=== PATIENT | female | born 1960 | race Caucasian/White ===

== ENCOUNTER 2017-06-21 16:12 | Inpatient (IN) | payer OTHER, MEDICAID ==
[~2017-06-21] VITALS: Ht 167.6 cm; Wt 75.0 kg
[~2017-06-21 16:12] MED LIST: AMPH1TAB83 PO; CYCL1TAB29 PO; CYMB60CA PO; DIAZ10 PO; DULO1CAP3 PO; FLON0.053; GABA300C5 PO; LAMO100 PO; MSIR15 PO; ORPH100T99 PO; PREG75 PO; XANA1TAB2 PO
[2017-06-21 16:28] VITALS: BP 113/66; PULSE 117; RESP 20; TEMP 100; O2SAT 100
--- NOTE | 2017-06-21 16:45 | PD ---
HPI Chief Complaint: Psychiatric Symptoms Time Seen by Provider: 16:28 Travel History International Travel<30 days: No Contact w/Intl Traveler<30days: No Traveled to known affect area: No History of Present Illness HPI 56-year-old female was Richards acted and brought in for evaluation. Patient has history of psychiatric including bipolar disorder, anxiety, depression, schizophrenia. Patient also has history of chronic pain and on pain medication including morphine and Xanax and Valium. Patient denies any recent alcohol or illicit drug abuse. Patient states that she injured her right ankle right foot recently and was seen at [facility]. X-ray was done patient was given a splint. Patient unable tell me how long the injury has been going on. Patient has not seen a orthopedics for follow-up. PFSH Past Medical History Arthritis: Yes (Rheumatoid) Autoimmune Disease: Yes Blood Disorders: No Bipolar Disorder: Yes Anxiety: Yes Depression: Yes Cancer: No (? able) Chemotherapy: No Cerebrovascular Accident: Yes Diminished Hearing: No Endocrine: No Gastrointestinal Disorders: Yes GERD: Yes Glaucoma: No Genitourinary: No Hepatitis: No Hiatal Hernia: Yes Hypertension: Yes Immune Disorder: Yes Implanted Vascular Access Dvce: No Musculoskeletal: Yes Neurologic: Yes Psychiatric: Yes (Hx of treatment for Bipolar Disorder, schizophrenia) Reproductive: Yes Respiratory: Yes (COPD) Immunizations Current: No Migraines: Yes Radiation Therapy: No Renal Failure: No Schizophrenia: Yes Seizures: Yes Sickle Cell Disease: No Sleep Apnea: Yes Thyroid Disease: No ?: Not Menopausal: Yes : 2 Para: 2 Past Surgical History Abdominal Surgery: Yes (hernia) Cardiac Surgery: No Cholecystectomy: Yes Ear Surgery: No Endocrine Surgery: No Eye Surgery: No Genitourinary Surgery: No Gynecologic Surgery: Yes Hysterectomy: Yes (partial) Neurologic Surgery: No Oral Surgery: No Pacemaker: No Thoracic Surgery: No Other Surgery: Yes Social History Alcohol Use: No Tobacco Use: Yes Substance Use: Yes Allergies-Medications (Allergen,Severity, Reaction): Coded Allergies: acetaminophen (Unverified Allergy, Severe, 06/21/17) aspirin (Unverified Allergy, Severe, SWELLING, 06/21/17) butalbital (Unverified Allergy, Severe, SWELLING, 06/21/17) caffeine (Unverified Allergy, Severe, SWELLING, 06/21/17) pseudoephedrine (Unverified Allergy, Severe, HIVES, 06/21/17) triprolidine (Unverified Allergy, Severe, 06/21/17) Reported Meds & Prescriptions Reported Meds & Active Scripts Active Orphenadrine CR (Orphenadrine Citrate) 100 Mg Tab 100 Mg PO Q12HR Reported Flonase (Fluticasone Propionate) 0.05 % Naspr 1 Spr NA DAILY 1 SPRAY EACH NOSTRIL Lamictal (Lamotrigine) 100 Mg Tab 100 Mg PO DAILY Lyrica (Pregabalin) 75 Mg Cap 75 Mg PO DAILY Cymbalta (Duloxetine HCl) 60 Mg Cap 120 Mg PO DAILY Duloxetine DR (Duloxetine HCl) 60 Mg Capdr 60 Mg PO BID Evekeo (Amphetamine Sulfate) 10 Mg Tab 20 Mg PO BID 1st dose on awakening; additional doses at intervals of 4-6 hrs. Avoid late evening. If treating exogenous obesity, take 30-60 min before meals. Flexeril (Cyclobenzaprine HCl) 10 Mg Tab 10 Mg PO BID Morphine IR (Morphine Sulfate) 15 Mg Tab Unknown Dose PO Q4H PRN Xanax (Alprazolam) 1 Mg Tab 1 Mg PO Q6H PRN Valium (Diazepam) 10 Mg Tab 10 Mg PO BID Gabapentin 300 Mg Cap 300 Mg PO TID Review of Systems General / Constitutional: No: Fever Eyes: No: Visual changes HENT: No: Headaches Cardiovascular: No: Chest Pain or Discomfort Respiratory: No: Shortness of Breath Gastrointestinal: No: Abdominal Pain Genitourinary: No: Dysuria Musculoskeletal: No: Pain Skin: No Rash Neurologic: No: Weakness Psychiatric: No: Depression Endocrine: No: Polydipsia Hematologic/Lymphatic: No: Easy Bruising Physical Exam Narrative GENERAL: Well-nourished, well-developed patient. SKIN: Focused skin assessment warm/dry. HEAD: Normocephalic. EYES: No scleral icterus. No injection or drainage. NECK: Supple, trachea midline. No JVD or lymphadenopathy. CARDIOVASCULAR: Regular rate and rhythm without murmurs, gallops, or rubs. RESPIRATORY: Breath sounds equal bilaterally. No accessory muscle use. GASTROINTESTINAL: Abdomen soft, non-tender, nondistended. MUSCULOSKELETAL: No cyanosis, or edema. BACK: Nontender without obvious deformity. No CVA tenderness. Patient has mild diffuse tenderness over the right ankle and right foot. No redness no heat noted. Sensorimotor function distally intact. Data Data Last Documented VS Vital Signs Date Time Temp Pulse Resp B/P (MAP) Pulse Ox O2 Delivery O2 Flow Rate FiO2 06/21/17 16:28 100.0 117 20 113/66 (82) 100 Orders Orders Complete Blood Count With Diff (06/21/17 16:35) Comprehensive Metabolic Panel (06/21/17 16:35) Psych Screen (06/21/17 16:35) Drug Screen, Random Urine (06/21/17 16:35) Alcohol (Ethanol) (06/21/17 16:35) Ankle, Complete ([id number]) (06/21/17 16:35) Foot, Complete ([id number]) (06/21/17 16:35) MDM Medical Decision Making Medical Screen Exam Complete: Yes Emergency Medical Condition: Yes Differential Diagnosis Differential diagnosis including acute exacerbation of bipolar disorder, schizophrenia, psychosis, substance induced mood disorder, right ankle foot sprain versus fracture. Narrative Course 56-year-old female was Richards acted and brought in for evaluation. History of bipolar disorder and schizophrenia. Patient also complained of right ankle right foot pain secondary to recent injury. Nam Garza MD Jun 21, 2017 16:45
--- NOTE | 2017-06-21 16:58 | RADRPT ---
EXAM DATE/TIME: 06/21/2017 16:45 [facility] COMPARISON: ANKLE RIGHT COMPLETE ([id number]), March 21, 2017, 18:33. ANKLE LEFT COMPLETE ([id number]), March 21, 2017, 18:35. INDICATIONS : Right ankle pain. Fall today. MEDICAL HISTORY : Right ankle fracture. SURGICAL HISTORY : None. ENCOUNTER: Initial ACUITY: 1 day PAIN SCORE: 6/10 LOCATION: Right ankle. FINDINGS: The examination demonstrates a partially healed fracture through the lateral malleolus. The ankle mor tise appears intact. No retained foreign body is seen. There is soft tissue swelling laterally around the ankle. CONCLUSION: There is a fracture through the lateral malleolus on the right. This appears to be partially healed. Ramy Silva MD on June 21, 2017 at 16:55 Board Certified Radiologist. This report was verified electronically.
--- NOTE | 2017-06-21 16:59 | RADRPT ---
EXAM DATE/TIME: 06/21/2017 16:47 [facility] COMPARISON: ANKLE RIGHT COMPLETE ([id number]), June 21, 2017, 16:45. INDICATIONS : Right foot pain; fall today. MEDICAL HISTORY : None. SURGICAL HISTORY : None. ENCOUNTER: Initial ACUITY: 1 day PAIN SCORE: 6/10 LOCATION: Right foot. FINDINGS: The osseous structures of the foot are intact. There are mild degenerative changes in the metatarsal phalangeal joint of the toe. Again noted is a partially healed fracture through the lateral malleolus. CONCLUSION: 1. No acute fracture the foot identified. Ramy Silva MD on June 21, 2017 at 16:57 Board Certified Radiologist. This report was verified electronically.
[2017-06-21] MEDS ORDERED: LORazepam 2 MG/ML VIAL IV PUSH ONE (17:15)
[2017-06-21] MEDS ORDERED: HALOPERIDOL LACTATE 5 MG/ML AMP IV PUSH ONE (17:15)
[2017-06-21] MEDS ORDERED: LORazepam 2 MG/ML VIAL IM ONE (17:15)
[2017-06-21] MEDS ORDERED: HALOPERIDOL LACTATE 5 MG/ML AMP IM ONE (17:15)
[2017-06-21 17:18] LABS: BASOPHIL # 0.1 TH/MM3 (0-0.2); BASOPHIL % 0.5 % (0.0-2.0); EOSINOPHIL # 0.5 TH/MM3 (0-0.4); EOSINOPHIL % 4.2 % (0.0-4.0); HEMO FLAGS DIFF FINAL; LYMPH % 34.3 % (9.0-44.0); LYMPHOCYTE # 3.9 TH/MM3 (1.0-4.8); MEAN CELL VOLUME 92.5 FL (80.0-100.0); MEAN CORPUSCULAR HEMOGLOBIN 31.7 PG (27.0-34.0); MEAN CORPUSCULAR HGB CONC 34.3 % (32.0-36.0); MONO % 8.1 % (0.0-8.0); NEUT % 52.9 % (16.0-70.0); PLATELET COUNT 264 TH/MM3 (150-450); RED CELL DISTRIBUTION WIDTH 13.5 % (11.6-17.2); WHITE BLOOD COUNT 11.3 TH/MM3 (4.0-11.0)
[2017-06-21 17:29] LABS: ALT (GPT) 102 U/L (10-53); ANION GAP 9 MEQ/L (5-15); AST (GOT) 90 U/L (15-37); BICARBONATE 25.5 MEQ/L (21.0-32.0); BLOOD UREA NITROGEN 20 MG/DL (7-18); CHLORIDE 102 MEQ/L (98-107); GLOMERULAR FILTRATION RATE 43 ML/MIN (>89); POTASSIUM 3.8 MEQ/L (3.5-5.1); SODIUM (NA) 136 MEQ/L (136-145)
[2017-06-21 17:32] LABS: ALKALINE PHOSPHATASE 102 U/L (45-117); TOTAL BILIRUBIN ADULT 0.5 MG/DL (0.2-1.0)
[2017-06-21 17:33] LABS: ALCOHOL LESS THAN 3 MG/DL (0-5)
[2017-06-21 22:17] VITALS: BP 138/77; PULSE 62; RESP 18; O2SAT 95
[2017-06-22 01:54] VITALS: BP 144/79; PULSE 68; RESP 18; O2SAT 96
[2017-06-22 06:33] VITALS: BP 121/60; PULSE 71; RESP 17; O2SAT 98
[2017-06-22 11:48] VITALS: BP 142/76; PULSE 88; RESP 17; TEMP 97.6; O2SAT 99
[2017-06-22] MEDS ORDERED: LORazepam 1 MG TAB PO PRN (12:00)
[2017-06-22] MEDS ORDERED: ACETAMINOPHEN 325 MG TAB PO PRN (12:00)
[2017-06-22] MEDS ORDERED: LORazepam 2 MG/ML VIAL IM PRN (12:00)
[2017-06-22] MEDS ORDERED: ALUMINUM/MAGNESIUM/SIMETH 30 ML CUP PO PRN (12:00)
[2017-06-22] MEDS ORDERED: MAGNESIUM HYDROXIDE SUSP 30 ML CUP PO PRN (12:00)
--- NOTE | 2017-06-22 12:14 | HHI.HP ---
Provisional Diagnosis Admission Date [place] I. Schizophrenia, chronic paranoid type Certification of Person's Competence To Provide Express and Informed Consent I have personally examined Carola Amaya , a person being served at [facility] on, Jun 22, 2017 12:02. Express and informed consent means consent voluntarily given in writing, by a competent person, after sufficient explanation and disclosure of the subject matter involved to enable the person to make a knowing and willful decision without any element of force, fraud, deceit, duress, or other form of constraint or coercion. This person is 18 years of age or older, is not now known to be incompetent to consent to treatment with a guardian advocate, and does not have a health care surrogate or proxy currently making medical treatment decisions. I have found this person to be one of the following: [x] Competent to provide express and informed consent, as defined above, for voluntary admission to this facility and is competent to provide express and informed consent for treatment. He/she has the consistent capacity to make well reasoned, willful, and knowing decisions concerning his or her medical or mental health treatment. The person fully and consistently understands the purpose of the admission for examination/placement and is fully capable of personally exercising all rights assured under [place] Incompetent to provide express and informed consent to voluntary admission, and this is incompetent to provide express and informed consent to treatment. The person must be transferred to involuntary status and a petition for a guardian advocate filed with the Circuit Court. [] Refusing to provide express and informed consent to voluntary admission but is competent to provide express and informed consent for treatment. The person must be discharged or transferred to involuntary status. Form shall be completed within 24 hours of a person's arrival at the receiving facility and filed in the clinical record of each person: 1. Admitted on a voluntary basis 2. Permitted to provide express and informed consent to his/her own treatment 3. Allowed to transfer from involuntary to voluntary status 4. Prior to permitting a person to consent to his or her own treatment after having been previously found incompetent to consent to treatment. History of Present Illness Capacity: Has Capacity HPI 56-year-old female, brought in under a Richards engaging in aggressive behavior in this emergency department. Reportedly, the patient was tearing apart her emergency department room. She did not know why she was brought to this hospital. She told one doctor that she uses morphine for chronic pain and she told this physician that she does not use morphine. Her answers to questions are considered contradictory and at times incoherent with obvious looseness of associations. She furthermore told an emergency department physician that she was homeless but told this physician that she lives with a roommate. She was treated in the main emergency department with Haldol. She has reportedly then receiving treatment from a psychiatrist in [place], which consists of amphetamines, Valium, Xanax and Cymbalta (no antipsychotic medication listed). She denies the use of alcohol or illicit drugs. However, she remains a poor historian with multiple looseness of associations. Review of Systems Except as stated in HPI: all other systems reviewed are Neg Past Psych History Psychological trauma history Patient admits to history of being treated at [facility]. She describes diagnoses of bipolar disorder and schizophrenia. Violence risk - others (6 mos) Moderate to high. Patient recently violent in this emergency department. Violence risk - self (6 mos) Moderate to high. Patient obviously psychotic with loose associations and contradict degree history. Substance Abuse History Drugs/Alcohol past 12 months Denied Past Family Social History Coded Allergies: acetaminophen (Unverified Allergy, Severe, 06/21/17) aspirin (Unverified Allergy, Severe, SWELLING, 06/21/17) butalbital (Unverified Allergy, Severe, SWELLING, 06/21/17) caffeine (Unverified Allergy, Severe, SWELLING, 06/21/17) pseudoephedrine (Unverified Allergy, Severe, HIVES, 06/21/17) triprolidine (Unverified Allergy, Severe, 06/21/17) Active Scripts Orphenadrine ER 12 HR (Orphenadrine CR) 100 Mg Tab, 100 MG PO Q12HR for Muscle Spasm, #10 TAB Prov:Roland Baer MD 11/18/[address]etine DR (Duloxetine DR) 60 Mg Capdr, 60 MG PO BID, #30 CAP 0 Refills 03/21/17 Amphetamine Sulfate (Evekeo) 10 Mg Tab, 20 MG PO BID for Hyperactivity Control, #30 TAB 0 Refills 1st dose on awakening; additional doses at intervals of 4-6 hrs. Avoid late evening. If treating exogenous obesity, take 30-60 min before meals. 03/21/17 Cyclobenzaprine (Flexeril) 10 Mg Tab, 10 MG PO BID for Muscle Spasm, #90 TAB 0 Refills 03/21/17 Morphine IR (Morphine IR) 15 Mg Tab, PO Q4H Y for PAIN, TAB 0 Refills 11/18/16 Alprazolam (Xanax) 1 Mg Tab, 1 MG PO Q6H Y for ANXIETY, TAB 0 Refills 08/28/16 Diazepam (Valium) 10 Mg Tab, 10 MG PO BID, TAB 0 Refills 08/28/16 Gabapentin (Gabapentin) 300 Mg Cap, 300 MG PO TID, #90 CAP 0 Refills 08/28/16 Current Medications Medications (Trade) Dose Ordered Sig/Corrine Route Start Time Stop Time Status Last Admin (Ativan) 1 mg Q6H PRN PO 06/22/17 12:00 UNV (Ativan Inj) 1 mg Q6H PRN IM 06/22/17 12:00 UNV (Tylenol) 650 mg Q4H PRN PO 06/22/17 12:00 UNV (Milk Of Magnesia Liq) 30 ml DAILY PRN PO 06/22/17 12:00 UNV (Mag-Al Plus Susp Liq) 30 ml Q6H PRN PO 06/22/17 12:00 UNV Family History Patient declined to answer. Social History Patient denies alcohol and drug abuse. She is unemployed. She is apparently homeless and unable to care for herself. Patient's Strengths (min. 2) Verbal and has access to healthcare. Physical Exam GENERAL: SKIN: Warm and dry. HEAD: Normocephalic. EYES: No scleral icterus. No injection or drainage. NECK: Supple, trachea midline. No JVD or lymphadenopathy. CARDIOVASCULAR: Regular rate and rhythm without murmurs, gallops, or rubs. RESPIRATORY: Breath sounds equal bilaterally. No accessory muscle use. GASTROINTESTINAL: Abdomen soft, non-tender, nondistended. MUSCULOSKELETAL: No cyanosis, or edema. BACK: Nontender without obvious deformity. No CVA tenderness. Vital Signs Vital Signs Date Time Temp Pulse Resp B/P (MAP) Pulse Ox O2 Delivery O2 Flow Rate FiO2 06/22/17 11:48 97.6 88 17 142/76 (98) 99 Room Air Lab Results Test 06/21/17 16:30 White Blood Count 11.3 TH/MM3 Red Blood Count 4.00 MIL/MM3 Hemoglobin 12.7 GM/DL Hematocrit 37.0 % Mean Corpuscular Volume 92.5 FL Mean Corpuscular Hemoglobin 31.7 PG Mean Corpuscular Hemoglobin Concent 34.3 % Red Cell Distribution Width 13.5 % Platelet Count 264 TH/MM3 Mean Platelet Volume 9.1 FL Neutrophils (%) (Auto) 52.9 % Lymphocytes (%) (Auto) 34.3 % Monocytes (%) (Auto) 8.1 % Eosinophils (%) (Auto) 4.2 % Basophils (%) (Auto) 0.5 % Neutrophils # (Auto) 6.0 TH/MM3 Lymphocytes # (Auto) 3.9 TH/MM3 Monocytes # (Auto) 0.9 TH/MM3 Eosinophils # (Auto) 0.5 TH/MM3 Basophils # (Auto) 0.1 TH/MM3 CBC Comment DIFF FINAL Differential Comment Blood Urea Nitrogen 20 MG/DL Creatinine 1.30 MG/DL Random Glucose 94 MG/DL Total Protein 8.3 GM/DL Albumin 3.8 GM/DL Calcium Level 9.5 MG/DL Alkaline Phosphatase 102 U/L Aspartate Amino Transf (AST/SGOT) 90 U/L Alanine Aminotransferase (ALT/SGPT) 102 U/L Total Bilirubin 0.5 MG/DL Sodium Level 136 MEQ/L Potassium Level 3.8 MEQ/L Chloride Level 102 MEQ/L Carbon Dioxide Level 25.5 MEQ/L Anion Gap 9 MEQ/L Estimat Glomerular Filtration Rate 43 ML/MIN Ethyl Alcohol Level LESS THAN 3 MG/DL Mental Status Examination Speech: Hesitant, Incoherent, Circumstantial, Tangential Orientation: x3 Memory: Unremarkable Thought Process: Loose Association Thought Content: Bizarre thinking Hallucination Type: None Attention and Concentration: Abnormal Suicidal Ideation: No Previous Suicide Attempts: No Homicidal Ideation: No Previous Homicide Attempts: No Insight: Fair Judgment: Impulsive Affect: Anxious Affect if Inappropriate: Blunt Mood: Anxious Motor Activity: Normal gait Assessment & Plan Problem List: (1) Paranoid type schizophrenia, chronic state ICD Codes: F20.0 - Paranoid schizophrenia Assessment & Plan Estimated LOS: days 56-year-old female with multiyear history of mental illness , self described as schizophrenic and bipolar. Patient demonstrates looseness of associations and she is a poor historian. She became physically aggressive in the main emergency department, eventually requiring Haldol. She is currently homeless and unable to care for herself. She continues to demonstrate illogical thought and loose associations. She expresses the need to take morphine, Adderall, Valium, Xanax as she feels antipsychotic medications are unnecessary. Obviously this physician feels the patient is inadequately caring for herself and not able or willing to contribute an accurate history. Patient being admitted for further evaluation and stabilization. This physician has ordered a CBC and comprehensive metabolic panel to determine if any infectious or metabolic process is causing or contributing to her psychosis. In addition, this physician has ordered a thyroid-stimulating hormone level, vitamin B-12 level and vitamin D level to determine if deficiencies in these areas are causing or contributing to her psychosis. She will also receive an EKG to determine if any cardiac conduction problems exist prior to changing psychotropic medicines. Because this physician is concerned about the patient withdrawing from benzodiazepines, she is being continued on Valium and when necessary Ativan. This physician spoke with the patient's nurse , Jayden, regarding her recent behavior. Case management will also be involved to assist with further information gathering and disposition planning. Ramón Byrd MD Jun 22, 2017 12:14
[2017-06-22] MEDS: GABAPENTIN 300 MG CAP PO SCH ×2 (14:30→17:33)
[2017-06-22 16:58] VITALS: BP 133/84; PULSE 88; RESP 17; TEMP 98.6; O2SAT 98
[2017-06-22] MEDS ORDERED: ORPHENADRINE CITRATE 100 MG SUSTAINED RELEASE TAB PO SCH (21:00)
[2017-06-22] MEDS: CYCLOBENZAPRINE HCL 10 MG TAB PO SCH (21:43)
[2017-06-22] MEDS: DIAZEPAM 10 MG TAB PO SCH (21:43)
[2017-06-23 06:02] VITALS: BP 119/61; PULSE 77; RESP 18; TEMP 97.6; O2SAT 96
[2017-06-23 09:23] LABS: AUTOMATED NEUTROPHIL # 2.7 TH/MM3 (1.8-7.7); BASOPHIL % 0.8 % (0.0-2.0); EOSINOPHIL # 0.4 TH/MM3 (0-0.4); EOSINOPHIL % 7.1 % (0.0-4.0); HEMATOCRIT 36.8 % (35.0-46.0); HEMO FLAGS DIFF FINAL; LYMPH % 33.2 % (9.0-44.0); LYMPHOCYTE # 1.8 TH/MM3 (1.0-4.8); MEAN CELL VOLUME 93.5 FL (80.0-100.0); MEAN CORPUSCULAR HEMOGLOBIN 31.4 PG (27.0-34.0); MEAN CORPUSCULAR HGB CONC 33.6 % (32.0-36.0); MONO % 7.2 % (0.0-8.0); NEUT % 51.7 % (16.0-70.0); PLATELET COUNT 201 TH/MM3 (150-450); RED BLOOD COUNT 3.94 MIL/MM3 (4.00-5.30); RED CELL DISTRIBUTION WIDTH 13.5 % (11.6-17.2); WHITE BLOOD COUNT 5.3 TH/MM3 (4.0-11.0)
[2017-06-23 09:45] LABS: ALT (GPT) 114 U/L (10-53); ANION GAP 7 MEQ/L (5-15); AST (GOT) 110 U/L (15-37); BICARBONATE 30.5 MEQ/L (21.0-32.0); BLOOD UREA NITROGEN 14 MG/DL (7-18); CHLORIDE 104 MEQ/L (98-107); GLOMERULAR FILTRATION RATE 71 ML/MIN (>89); POTASSIUM 3.7 MEQ/L (3.5-5.1); SODIUM (NA) 141 MEQ/L (136-145)
[2017-06-23] MEDS: CYCLOBENZAPRINE HCL 10 MG TAB PO SCH ×2 (10:08→21:38)
[2017-06-23] MEDS: DIAZEPAM 10 MG TAB PO SCH ×2 (10:08→21:38)
[2017-06-23] MEDS: GABAPENTIN 300 MG CAP PO SCH ×3 (10:08→18:19)
[2017-06-23 10:22] LABS: ALKALINE PHOSPHATASE 99 U/L (45-117); HDL CHOLESTEROL 56.3 MG/DL (40.0-60.0); LDL CHOLESTEROL 71 MG/DL (0-99); TOTAL BILIRUBIN ADULT 0.3 MG/DL (0.2-1.0)
[2017-06-23 11:18] LABS: HEMOGLOBIN A1a 0.9 %; HEMOGLOBIN A1b 0.7 %; HEMOGLOBIN Ao 86.7 %; HEMOGLOBIN F 0.8 %; HEMOGLOBIN P3 3.3 %
--- NOTE | 2017-06-23 11:37 | EKG ---
Date Performed: 06/23/2017 Time Performed: 10:23:30 PTAGE: 56 years EKG: Sinus rhythm POSSIBLE LEFT ATRIAL ENLARGEMENT BORDERLINE ECG PREVIOUS TRACING : 09/28/2012 04.39 Compared to previous tracing, T wave amplitude has decrease d diffusely. DOCTOR: Peter Fortune Interpretating Date/Time 06/23/2017 11:35:29
--- NOTE | 2017-06-23 16:34 | HHI.PYPN ---
Subjective Remarks Patient was seen and case discussed with nursing. Patient is disheveled and disorganized during the interview. Says she wants to have a plastic gun in the future will not specify the contents, later saying if it was so the police could shoot her. Insight is poor concerning her drug use. Denies auditory visual hallucinations Objective Alert: Yes [place]: Person, Place Mood: Anxious Affect: Restricted Memory Intact: Immediate (not formally assessed) Hallucinations: Other (denies) Delusions: No Delusion Type: Other Suicidal: Ideation (denies) Homicidal: Ideation (denies) Insight/Judgment Poor Labs Test 06/23/17 08:47 White Blood Count 5.3 TH/MM3 Red Blood Count 3.94 MIL/MM3 Hemoglobin 12.4 GM/DL Hematocrit 36.8 % Mean Corpuscular Volume 93.5 FL Mean Corpuscular Hemoglobin 31.4 PG Mean Corpuscular Hemoglobin Concent 33.6 % Red Cell Distribution Width 13.5 % Platelet Count 201 TH/MM3 Mean Platelet Volume 8.8 FL Neutrophils (%) (Auto) 51.7 % Lymphocytes (%) (Auto) 33.2 % Monocytes (%) (Auto) 7.2 % Eosinophils (%) (Auto) 7.1 % Basophils (%) (Auto) 0.8 % Neutrophils # (Auto) 2.7 TH/MM3 Lymphocytes # (Auto) 1.8 TH/MM3 Monocytes # (Auto) 0.4 TH/MM3 Eosinophils # (Auto) 0.4 TH/MM3 Basophils # (Auto) 0.0 TH/MM3 CBC Comment DIFF FINAL Differential Comment Blood Urea Nitrogen 14 MG/DL Creatinine 0.83 MG/DL Random Glucose 101 MG/DL Total Protein 7.0 GM/DL Albumin 3.0 GM/DL Calcium Level 9.1 MG/DL Alkaline Phosphatase 99 U/L Aspartate Amino Transf (AST/SGOT) 110 U/L Alanine Aminotransferase (ALT/SGPT) 114 U/L Total Bilirubin 0.3 MG/DL Sodium Level 141 MEQ/L Potassium Level 3.7 MEQ/L Chloride Level 104 MEQ/L Carbon Dioxide Level 30.5 MEQ/L Anion Gap 7 MEQ/L Estimat Glomerular Filtration Rate 71 ML/MIN Hemoglobin A1c 5.1 % Triglycerides Level 70 MG/DL Cholesterol Level 141 MG/DL LDL Cholesterol 71 MG/DL HDL Cholesterol 56.3 MG/DL Cholesterol/HDL Ratio 2.50 RATIO Vitamin B12 Level 422 PG/ML 25-Hydroxy Vitamin D Total 34.8 ng/ML Thyroid Stimulating Hormone 3rd Gen 1.140 uIU/ML Vitals/IOs Vital Signs Date Time Temp Pulse Resp B/P (MAP) Pulse Ox O2 Delivery O2 Flow Rate FiO2 06/23/17 06:02 97.6 77 18 119/61 (80) 96 06/22/17 11:48 Room Air Assessment & Plan Problem List: (1) Paranoid type schizophrenia, chronic state ICD Codes: F20.0 - Paranoid schizophrenia Assessment & Plan Continue current treatment plan Justification for Cont. Inpt. Patient would decompensate in a less restrictive setting Shlomo Driscoll DO Jun 23, 2017 16:34
[2017-06-24 05:46] VITALS: BP 127/66; PULSE 90; RESP 16; TEMP 97.6; O2SAT 98
[2017-06-24] MEDS: GABAPENTIN 300 MG CAP PO SCH ×3 (08:43→17:34)
[2017-06-24] MEDS: CYCLOBENZAPRINE HCL 10 MG TAB PO SCH ×2 (08:43→21:31)
[2017-06-24] MEDS: DIAZEPAM 10 MG TAB PO SCH ×2 (08:43→21:31)
--- NOTE | 2017-06-24 10:28 | HHI.PYPN ---
Subjective Remarks Patient was seen and case discussed with nursing. Patient is asking about discharge. She is showing improved insight into drug use and wants to stop using. Nursing requesting a UA for incontinence. She denies suicidal or homicidal ideation intent or plan. Denies depressed mood Objective Alert: Yes [place]: Person, Place Mood: Anxious Affect: Appropriate Memory Intact: Immediate (not formally assessed) Hallucinations: Other (denies) Delusions: No Delusion Type: Other Suicidal: Ideation (denies) Homicidal: Ideation (denies) Insight/Judgment Improving Vitals/IOs Vital Signs Date Time Temp Pulse Resp B/P (MAP) Pulse Ox O2 Delivery O2 Flow Rate FiO2 06/24/17 05:46 97.6 90 16 127/66 (86) 98 06/22/17 11:48 Room Air Assessment & Plan Problem List: (1) Paranoid type schizophrenia, chronic state ICD Codes: F20.0 - Paranoid schizophrenia Assessment & Plan UA, PT consult Justification for Cont. Inpt. Patient will decompensate in a less restrictive setting Shlomo Drsicoll DO Jun 24, 2017 10:28
[2017-06-24] MEDS: NICOTINE 21 MG/24 HR PATCH T-DERMAL SCH (13:27)
[2017-06-24 14:39] LABS: BLOOD, URINE NEG (NEG); CALCIUM OXALATE CRYSTALS,URINE FEW /hpf; COMMENT (UR) CULT NOT INDICATED; CULTURE IF INDICATED CULT NOT INDICATED; GLUCOSE,URINE NEG (NEG); KETONE, URINE NEG (NEG); MUCUS URINE FEW /lpf (OCC); NITRITE,URINE NEG (NEG); PH, URINE 5.5 (5.0-8.5); SQUAMOUS EPITHELIAL CELL URINE 13 /hpf (0-5); URINE COLOR YELLOW (YELLW/STRAW)
[2017-06-24 17:52] VITALS: BP 114/58; PULSE 82; RESP 16; TEMP 97.6; O2SAT 96
[2017-06-24] MEDS ORDERED: REMOVE OLD NICODERM (NICOTINE) PATCH T-DERMAL SCH (21:00)
[2017-06-25 06:34] VITALS: BP 129/81; PULSE 71; RESP 18; TEMP 96.9; O2SAT 96
[2017-06-25] MEDS: CYCLOBENZAPRINE HCL 10 MG TAB PO SCH (08:31)
[2017-06-25] MEDS: DIAZEPAM 10 MG TAB PO SCH (08:31)
[2017-06-25] MEDS: GABAPENTIN 300 MG CAP PO SCH ×3 (08:32→17:51)
[2017-06-25] MEDS: NICOTINE 21 MG/24 HR PATCH T-DERMAL SCH (09:00)
--- NOTE | 2017-06-25 14:25 | HHI.DS ---
Psychiatry Discharge Summary Inpatient Psychiatric care?: Yes Advance Directive: No Reason Not Provided: PT WILL REVIEW Mental Health AdvanceDirective: No Health Care Proxy: No Admission Admission Date Jun 22, 2017 at 11:59 Admission Diagnosis: (1) Substance induced mood disorder ICD Code: F19.94 - Other psychoactive substance use, unspecified with psychoactive substance-induced mood disorder (2) Schizoaffective disorder, bipolar type ICD Code: F25.0 - Schizoaffective disorder, bipolar type Brief History 56-year-old female, brought in under a Richards engaging in aggressive behavior in this emergency department. Reportedly, the patient was tearing apart her emergency department room. She did not know why she was brought to this hospital. She told one doctor that she uses morphine for chronic pain and she told this physician that she does not use morphine. Her answers to questions are considered contradictory and at times incoherent with obvious looseness of associations. She furthermore told an emergency department physician that she was homeless but told this physician that she lives with a roommate. She was treated in the main emergency department with Lucy. She has reportedly then receiving treatment from a psychiatrist in [place], which consists of amphetamines, Valium, Xanax and Cymbalta (no antipsychotic medication listed). She denies the use of alcohol or illicit drugs. However, she remains a poor historian with multiple looseness of associations. Tobacco Use In Past 30 Days: No Tobacco Past 30 Days Alcohol Use: Never Hospital Course Patient's hospital course was essentially unremarkable. Her orientation processing did develop and improve. She now denies suicidality homicidality voices or visions. She is better grounded in reality. Though there is still a mild grandiosity. However she states she does have a psychiatrist who is prescribing polypharmacy for her that may be somewhat dangerous to her health. However she does deny any recreational drugs at this time. She is oriented 4. She does have a safe place to return home. She is here on a voluntary status. At this time she no longer meets criteria for an involuntary psychiatric hospitalization. And she does wish to be discharged. Thus will outpatient be discharged to herself. No Rx by me. She may follow through with her private psychiatrist in the community. And do as she deems appropriate with her prescribed medications at home. I have strongly counseled to abstain from use of these drugs. Thus patient to be discharged today to herself with no Rx by me. Though would refer her through to n/a Results Blood Pressure 129 / 81 Vital Signs Date Time Temp Pulse Resp B/P (MAP) Pulse Ox O2 Delivery O2 Flow Rate FiO2 06/25/17 06:34 96.9 71 18 129/81 (97) 96 06/22/17 11:48 Room Air Laboratory Tests Test 06/23/17 08:47 06/24/17 11:06 Red Blood Count 3.94 MIL/MM3 (4.00-5.30) Eosinophils (%) (Auto) 7.1 % (0.0-4.0) Albumin 3.0 GM/DL (3.4-5.0) Aspartate Amino Transf (AST/SGOT) 110 U/L (15-37) Alanine Aminotransferase (ALT/SGPT) 114 U/L (10-53) Estimat Glomerular Filtration Rate 71 ML/MIN (>89) Urine Turbidity HAZY (CLEAR) Urine Leukocyte Esterase TRACE (NEG) Urine Calcium Oxalate Crystals FEW /hpf (NONE) Urine Mucus FEW /lpf (OCC) Laboratory Results Test 06/23/17 08:47 Cholesterol Level 141 MG/DL (120-200) HDL Cholesterol 56.3 MG/DL (40.0-60.0) Hemoglobin A1c 5.1 % (4.3-6.0) LDL Cholesterol 71 MG/DL (0-99) Triglycerides Level 70 MG/DL (42-150) Summary of Major Lab Results Urine toxicology positive for amphetamines and benzodiazepines Summary of Procedures None done Imaging Last Impressions Foot X-Ray 06/21/171634 Signed Impressions: Service Date/Time: May 16:47 - CONCLUSION: 1. No acute fracture the foot identified. Ramy Silva MD Ankle X-Ray 06/21/17 1635 Signed Impressions: Service Date/Time: May 16:45 - CONCLUSION: There is a fracture through the lateral malleolus on the right. This appears to be partially healed. Ramy Silva MD Pending results at discharge: No Medications # of Antipsychotic meds at D/C: 0 Approp Antipsych med options 1 - Minimum of three failed multiple trials of monotherapy. 2 - Documented plan to taper to monotherapy due to previous use of multiple meds OR cross-taper in progress at D/C. 3 - Documentation of augmentation of Clozapine. 4 - Justification other than those listed in allowable values 1-3, document here : Discharge Discharge Date: Jun 25, 2017 Discharge Diagnosis: (1) Schizoaffective disorder, bipolar type Diagnosis: Principal ICD Code: F25.0 - Schizoaffective disorder, bipolar type (2) Substance induced mood disorder Diagnosis: Secondary ICD Code: F19.94 - Other psychoactive substance use, unspecified with psychoactive substance-induced mood disorder Status: Acute Mental Status Exam at Disch Alert oriented thin slender right blonde with very poor dentition walking with walker. She is normal active, mood is somewhat elevated with slight increase range and intensity of her affect. Beach rate and rhythm are somewhat increased and mildly tangential, there are no auditory or visual hallucinations , there are no delusions though there is some mild grandiosity, insight and judgment is poor cognition grossly intact Pt Condition on Discharge: Stable Discharge Disposition: Discharge Home Discharge Instructions Diet Instructions: As Tolerated, No Restrictions Activities you can perform: Regular-No Restrictions Scheduled Appointment: Private Psychiatrist (refer also to NA) Discharge Time > 30 minutes Discharge/Advance Care Plan Health Problems: (1) Paranoid type schizophrenia, chronic state Goals to promote your health * To prevent worsening of your condition and complications * To maintain your health at the optimal level Directions to meet your goals Take your medications as prescribed Follow your dietary instruction Follow activity as directed Keep your appointments as scheduled Take your immunizations and boosters as scheduled If your symptoms worsen call your PCP, if no PCP go to Urgent Care Center or Emergency Room For 16/04 questions related to your inpatient stay or results of tests pending at discharge, please contact Dr. Derian Dickey at Smoking is Dangerous to Your Health. Avoid second hand smoking Derian Dickey MD Jun 25, 2017 14:25
[2017-06-25 17:55] VITALS: BP 141/88; PULSE 77; RESP 18; TEMP 97.5; O2SAT 99
== END 2017-06-25 19:00 | disposition home or self-care (01) | DRG 885 ==
LOC: NEPE 16:12 → NEDA 06-22 11:59 → H260 06-22 14:50
PROVIDERS: ADMIT Psychiatry & Neurology Psychiatry; ATTEND Psychiatry & Neurology Psychiatry
DX: F25.0 Schizoaffective disorder, bipolar type (principal); Z59.0 Homelessness; I10 Essential (primary) hypertension; K21.9 Gastro-esophageal reflux disease without esophagitis; M06.9 Rheumatoid arthritis, unspecified; J44.9 Chronic obstructive pulmonary disease, unspecified; G47.30 Sleep apnea, unspecified; R32 Unspecified urinary incontinence; F19.94 Other psychoactive substance use, unspecified with psychoactive substance-induced mood disorder; Z72.0 Tobacco use; Z88.6 Allergy status to analgesic agent; Z86.73 Personal history of transient ischemic attack (TIA), and cerebral infarction without residual deficits
CPT/HCPCS: 73610; 73630; 80053; 80061; 80307; 81001; 82306; 82607; 83036; 84443; 85025; 93005; 96372; 96374; E0113; J1630; J2060

== ENCOUNTER 2017-12-21 10:34 | Emergency (ER) | payer OTHER, MEDICAID ==
[~2017-12-21 10:34] MED LIST changes: +CYCL10TA PO; -CYCL1TAB29 PO; -CYMB60CA PO; -FLON0.053; -LAMO100 PO; +ORPH100T2 PO; -ORPH100T99 PO; -PREG75 PO
[2017-12-21] MEDS ORDERED: diphenhydrAMINE HCL 50 MG/ML VIAL IM ONE (10:45)
[2017-12-21] MEDS ORDERED: HALOPERIDOL LACTATE 5 MG/ML AMP IM ONE (10:45)
[2017-12-21 10:55] VITALS: BP 148/98; PULSE 121; RESP 22; TEMP 97.4; O2SAT 100
--- NOTE | 2017-12-21 11:11 | PD ---
HPI Chief Complaint: Psychiatric Symptoms Time Seen by Provider: 10:50 Travel History International Travel<30 days: No Contact w/Intl Traveler<30days: No History of Present Illness HPI 56-year-old female with long psychiatric history, brought in under the Richards act for suicidal or homicidal ideation. Patient appears psychotic is combative and in restraints at the time of my exam. Patient is refusing to ask questions to be cooperative with exam. No obvious medical issues are noted. And vital signs are stable. Patient has allergies to acetaminophen, aspirin, butalbital, caffeine, pseudoephedrine, triprolidine. PFSH Past Medical History Arthritis: Yes Asthma: No Autoimmune Disease: Yes Blood Disorders: No Bipolar Disorder: Yes Anxiety: Yes Depression: Yes Heart Rhythm Problems: No Cancer: No (per pt) Cardiovascular Problems: No ( per pt) High Cholesterol: No Chemotherapy: No Chest Pain: No Congestive Heart Failure: No COPD: Yes Cerebrovascular Accident: No Diabetes: No ( per pt) Diminished Hearing: No Endocrine: No Gastrointestinal Disorders: Yes GERD: Yes Glaucoma: No Genitourinary: No Headaches: Yes (per pt 12 headaches in the past 2 weeks) Hepatitis: No Hiatal Hernia: No Hypertension: Yes Immune Disorder: Yes Implanted Vascular Access Dvce: No Kidney Stones: No Musculoskeletal: Yes (ARTHRITIS) Neurologic: No Psychiatric: Yes (bipolar disorder, anxiety, depression, schizophrenia) Reproductive: No Respiratory: No Immunizations Current: No Migraines: No Radiation Therapy: No Renal Failure: No Schizophrenia: Yes Seizures: Yes (per pt but it has been a long time ) Sickle Cell Disease: No Sleep Apnea: Yes Thyroid Disease: No Ulcer: No Menopausal: Yes : 2 Para: 2 Past Surgical History Abdominal Surgery: Yes (MILAGROS) AICD: No Arteriovenous Shunt: No Cardiac Surgery: No Cholecystectomy: Yes Ear Surgery: No Endocrine Surgery: No Eye Surgery: No Genitourinary Surgery: No Gynecologic Surgery: Yes () Hysterectomy: Yes (partial) Insulin Pump: No Joint Replacement: No Neurologic Surgery: No Oral Surgery: No Pacemaker: No Thoracic Surgery: No Other Surgery: Yes Social History Alcohol Use: No Tobacco Use: Yes Substance Use: No (PER PT , RECORD POS BENZO & AMPHETAMINES) Allergies-Medications (Allergen,Severity, Reaction): Coded Allergies: acetaminophen (Unverified Allergy, Severe, 06/21/17) aspirin (Unverified Allergy, Severe, SWELLING, 06/21/17) butalbital (Unverified Allergy, Severe, SWELLING, 06/21/17) caffeine (Unverified Allergy, Severe, SWELLING, 06/21/17) pseudoephedrine (Unverified Allergy, Severe, HIVES, 06/21/17) triprolidine (Unverified Allergy, Severe, 06/21/17) Reported Meds & Prescriptions Reported Meds & Active Scripts Active Orphenadrine CR (Orphenadrine Citrate) 100 Mg Tab 100 Mg PO Q12HR Reported Duloxetine DR (Duloxetine HCl) 60 Mg Capdr 60 Mg PO BID Evekeo (Amphetamine Sulfate) 10 Mg Tab 20 Mg PO BID 1st dose on awakening; additional doses at intervals of 4-6 hrs. Avoid late evening. If treating exogenous obesity, take 30-60 min before meals. Flexeril (Cyclobenzaprine HCl) 10 Mg Tab 10 Mg PO BID Morphine IR (Morphine Sulfate) 15 Mg Tab Unknown Dose PO Q4H PRN Xanax (Alprazolam) 1 Mg Tab 1 Mg PO Q6H PRN Valium (Diazepam) 10 Mg Tab 10 Mg PO BID Gabapentin 300 Mg Cap 300 Mg PO TID Review of Systems ROS Limitations: Uncooperative, Combative, Psychotic Except as stated in HPI: all other systems reviewed are Neg General / Constitutional: No: Fever Eyes: No: Visual changes HENT: No: Headaches Cardiovascular: No: Chest Pain or Discomfort Respiratory: No: Shortness of Breath Gastrointestinal: No: Abdominal Pain Genitourinary: No: Dysuria Musculoskeletal: No: Pain Skin: No Rash Neurologic: No: Weakness Psychiatric: No: Depression Endocrine: No: Polydipsia Hematologic/Lymphatic: No: Easy Bruising Physical Exam Exam Limitations: Uncooperative, Combative, Psychotic Narrative GENERAL: Patient is combative and yelling and screaming. She is in restraints. SKIN: Warm and dry. Patient has some old bruising to the inner upper left arm. HEAD: Atraumatic. Normocephalic. EYES: Pupils equal and round. No scleral icterus. No injection or drainage. ENT: No nasal bleeding or discharge. Mucous membranes pink and moist. Pharynx is clear. NECK: Trachea midline. Apparently supple. CARDIOVASCULAR: Regular rate and rhythm. RESPIRATORY: No accessory muscle use. Clear to auscultation. Breath sounds equal bilaterally. MUSCULOSKELETAL: Extremities without clubbing, cyanosis, or edema. No obvious deformities. NEUROLOGICAL: Awake and alert. No obvious cranial nerve deficits. Motor grossly within normal limits. Five out of 5 muscle strength in the arms and legs. Normal speech. PSYCHIATRIC: Patient appears psychotic Data Data Last Documented VS Vital Signs Date Time Temp Pulse Resp B/P (MAP) Pulse Ox O2 Delivery O2 Flow Rate FiO2 12/22/17 08:45 12/22/17 06:38 98.1 75 17 97 Room Air Orders Orders Haloperidol Inj (Haldol Inj) (12/21/17 10:45) Diphenhydramine Inj (Benadryl Inj) (12/21/17 10:45) Restraints Violent (12/21/17 10:45) Complete Blood Count With Diff (12/21/17 11:11) Comprehensive Metabolic Panel (12/21/17 11:11) Thyroid Stimulating Hormone (12/21/17 11:11) Psych Screen (12/21/17 11:11) Lorazepam Inj (Ativan Inj) (12/21/17 11:15) Restraints Violent (12/21/17 11:11) Drug Screen, Random Urine (12/21/17 11:11) Alcohol (Ethanol) (12/21/17 11:11) Diet Regular Basic (12/21/17 Lunch) Diet Regular Basic (12/21/17 Dinner) Diet Regular Basic (12/22/17 Breakfast) Labs Laboratory Tests Test 12/21/17 11:30 12/21/17 12:00 White Blood Count 5.6 TH/MM3 Red Blood Count 3.85 MIL/MM3 Hemoglobin 11.7 GM/DL Hematocrit 34.8 % Mean Corpuscular Volume 90.2 FL Mean Corpuscular Hemoglobin 30.3 PG Mean Corpuscular Hemoglobin Concent 33.6 % Red Cell Distribution Width 14.2 % Platelet Count 236 TH/MM3 Mean Platelet Volume 8.4 FL Neutrophils (%) (Auto) 53.4 % Lymphocytes (%) (Auto) 35.1 % Monocytes (%) (Auto) 6.3 % Eosinophils (%) (Auto) 4.3 % Basophils (%) (Auto) 0.9 % Neutrophils # (Auto) 3.0 TH/MM3 Lymphocytes # (Auto) 2.0 TH/MM3 Monocytes # (Auto) 0.4 TH/MM3 Eosinophils # (Auto) 0.2 TH/MM3 Basophils # (Auto) 0.1 TH/MM3 CBC Comment DIFF FINAL Differential Comment Blood Urea Nitrogen 11 MG/DL Creatinine 1.03 MG/DL Random Glucose 92 MG/DL Total Protein 7.1 GM/DL Albumin 3.0 GM/DL Calcium Level 8.9 MG/DL Alkaline Phosphatase 94 U/L Aspartate Amino Transf (AST/SGOT) 53 U/L Alanine Aminotransferase (ALT/SGPT) 63 U/L Total Bilirubin 0.3 MG/DL Sodium Level 141 MEQ/L Potassium Level 3.6 MEQ/L Chloride Level 104 MEQ/L Carbon Dioxide Level 30.4 MEQ/L Anion Gap 7 MEQ/L Estimat Glomerular Filtration Rate 56 ML/MIN Thyroid Stimulating Hormone 3rd Gen 3.180 uIU/ML Ethyl Alcohol Level LESS THAN 3 MG/DL Urine Opiates Screen NEG Urine Barbiturates Screen NEG Urine Amphetamines Screen POS Urine Benzodiazepines Screen POS Urine Cocaine Screen POS Urine Cannabinoids Screen NEG MDM Medical Decision Making Medical Screen Exam Complete: Yes Emergency Medical Condition: Yes Differential Diagnosis Richards act. Psychosis. Suicidal/homicidal ideation. Narrative Course Patient appears medically stable although psychiatrically out of control. Patient is in restraints, has been given Haldol, Benadryl, and lorazepam IM. Psychiatric labs ordered per protocol. Patient is medically cleared for psychiatric evaluation Condition: Stable Rajat Shepard Dec 21, 2017 11:11
[2017-12-21] MEDS ORDERED: LORazepam 2 MG/ML VIAL IM ONE (11:15)
[2017-12-21 11:49] LABS: BASOPHIL # 0.1 TH/MM3 (0-0.2); BASOPHIL % 0.9 % (0.0-2.0); EOSINOPHIL # 0.2 TH/MM3 (0-0.4); EOSINOPHIL % 4.3 % (0.0-4.0); HEMATOCRIT 34.8 % (35.0-46.0); HEMOGLOBIN 11.7 GM/DL (11.6-15.3); LYMPH % 35.1 % (9.0-44.0); MEAN CELL VOLUME 90.2 FL (80.0-100.0); MEAN CORPUSCULAR HEMOGLOBIN 30.3 PG (27.0-34.0); MEAN CORPUSCULAR HGB CONC 33.6 % (32.0-36.0); MEAN PLATELET VOLUME 8.4 FL (7.0-11.0); MONO % 6.3 % (0.0-8.0); MONOCYTE # 0.4 TH/MM3 (0-0.9); NEUT % 53.4 % (16.0-70.0); PLATELET COUNT 236 TH/MM3 (150-450); RED BLOOD COUNT 3.85 MIL/MM3 (4.00-5.30); RED CELL DISTRIBUTION WIDTH 14.2 % (11.6-17.2); WHITE BLOOD COUNT 5.6 TH/MM3 (4.0-11.0)
[2017-12-21 12:03] LABS: AST (GOT) 53 U/L (15-37); BICARBONATE 30.4 MEQ/L (21.0-32.0); BLOOD UREA NITROGEN 11 MG/DL (7-18); CALCIUM 8.9 MG/DL (8.5-10.1); CHLORIDE 104 MEQ/L (98-107); CREATININE 1.03 MG/DL (0.50-1.00); GLOMERULAR FILTRATION RATE 56 ML/MIN (>89); GLUCOSE,RANDOM 92 MG/DL (74-106); SODIUM (NA) 141 MEQ/L (136-145)
[2017-12-21 12:04] LABS: ALT (GPT) 63 U/L (10-53)
[2017-12-21 12:14] LABS: ALKALINE PHOSPHATASE 94 U/L (45-117); TOTAL BILIRUBIN ADULT 0.3 MG/DL (0.2-1.0); TOTAL PROTEIN 7.1 GM/DL (6.4-8.2)
[2017-12-21 18:16] VITALS: BP 125/78; PULSE 69; RESP 16; TEMP 98.7; O2SAT 97
[2017-12-21 22:40] VITALS: BP 139/71; PULSE 66; RESP 18; TEMP 98.2; O2SAT 99
[2017-12-22 06:38] VITALS: BP 140/73; PULSE 75; RESP 17; TEMP 98.1; O2SAT 97
== END 2017-12-22 08:45 | disposition short-term general hospital (02) ==
LOC: NEPJ 10:34
DX: R45.850 Homicidal ideations (principal); R45.851 Suicidal ideations; F20.9 Schizophrenia, unspecified; F31.9 Bipolar disorder, unspecified; Z79.899 Other long term (current) drug therapy
CPT/HCPCS: 80053; 80307; 84443; 85025; 96372; 99285; J1200; J1630; J2060

== ENCOUNTER 2018-01-06 13:43 | Inpatient (IN) | payer OTHER, MEDICAID, MEDICARE ==
[~2018-01-06] VITALS: Ht 165.1 cm; Wt 71.0 kg
[2018-01-06] VITALS (7 sets, daily range): BP systolic 125–173; BP diastolic 65–96; PULSE 60–96; RESP 16–20; TEMP 97.9–98; O2SAT 96–100
[2018-01-06] MEDS ORDERED: LAMI25TA PO (16:19)
[2018-01-06] MEDS ORDERED: DIAZ10 PO (16:19)
--- NOTE | 2018-01-06 16:22 | PD ---
HPI Chief Complaint: Injury Time Seen by Provider: 16:05 Travel History International Travel<30 days: No Contact w/Intl Traveler<30days: No Traveled to known affect area: No History of Present Illness HPI Patient is a 57-year-old female formal IV drug abuser presents emergency department for evaluation of low back pain. His chief complaint is actually " my bladder disc and my bowel disc have popped out and i have been [losing my urine and stool]." Patient states that the symptoms have been going on for some time, she has an appointment with an orthopedic surgeon but she does not know when, she states she had an MRI in August but does not know the results. She states she continues to fall and has a law suit against someone for her falling. Patient also states "you can drug test me if he wants but I am clean. When asked why the patient would volunteer this information she states "because every time I come here I get Richards acted". No fevers no cough no congestion. PFSH Past Medical History Arthritis: Yes Asthma: Yes Autoimmune Disease: Yes Blood Disorders: No Bipolar Disorder: Yes Anxiety: Yes Depression: Yes Heart Rhythm Problems: No Cancer: No (per pt) Cardiovascular Problems: No ( per pt) High Cholesterol: No Chemotherapy: No Chest Pain: No Congestive Heart Failure: No COPD: Yes Cerebrovascular Accident: No Diabetes: No ( per pt) Diminished Hearing: No Endocrine: No Gastrointestinal Disorders: Yes GERD: Yes Glaucoma: No Genitourinary: No Headaches: Yes Hepatitis: No Hiatal Hernia: No Herniated Disk: Yes (L-spine) Hypertension: Yes Immune Disorder: Yes Implanted Vascular Access Dvce: No Kidney Stones: No Musculoskeletal: Yes Neurologic: No Psychiatric: Yes (bipolar disorder, anxiety, depression, schizophrenia) Reproductive: No Respiratory: Yes (asthma) Immunizations Current: No Migraines: No Radiation Therapy: No Renal Failure: No Schizophrenia: Yes Seizures: Yes Sickle Cell Disease: No Sleep Apnea: Yes Thyroid Disease: No Ulcer: No Menopausal: Yes : 2 Para: 2 Past Surgical History Abdominal Surgery: Yes (hernia repair) AICD: No Arteriovenous Shunt: No Cardiac Surgery: No Cholecystectomy: Yes Ear Surgery: No Endocrine Surgery: No Eye Surgery: No Genitourinary Surgery: No Gynecologic Surgery: Yes Hysterectomy: Yes (partial) Insulin Pump: No Joint Replacement: No Neurologic Surgery: No Oral Surgery: No Pacemaker: No Thoracic Surgery: No Other Surgery: Yes (MILAGROS; PARTIAL HYSTERETOMY) Social History Alcohol Use: No Tobacco Use: Yes Substance Use: Yes (crack-last use today, methamphetamine-last use today) Allergies-Medications (Allergen,Severity, Reaction): Coded Allergies: acetaminophen (Unverified Allergy, Severe, 01/06/18) aspirin (Unverified Allergy, Severe, SWELLING, 01/06/18) butalbital (Unverified Allergy, Severe, SWELLING, 01/06/18) caffeine (Unverified Allergy, Severe, SWELLING, 01/06/18) pseudoephedrine (Unverified Allergy, Severe, HIVES, 01/06/18) triprolidine (Unverified Allergy, Severe, 01/06/18) Reported Meds & Prescriptions Reported Meds & Active Scripts Active Reported Lamictal XR (Lamotrigine) 25 Mg Marj 25 Mg PO DAILY Valium (Diazepam) 10 Mg Tab 10 Mg PO HS PRN Duloxetine DR (Duloxetine HCl) 60 Mg Capdr 60 Mg PO BID Evekeo (Amphetamine Sulfate) 10 Mg Tab 20 Mg PO BID 1st dose on awakening; additional doses at intervals of 4-6 hrs. Avoid late evening. If treating exogenous obesity, take 30-60 min before meals. Xanax (Alprazolam) 1 Mg Tab 1 Mg PO Q6H PRN Gabapentin 300 Mg Cap 300 Mg PO TID Review of Systems Except as stated in HPI: all other systems reviewed are Neg Physical Exam Narrative GENERAL: Well-developed well-nourished, quite eccentric, dentures are loose. SKIN: Focused skin assessment warm/dry. HEAD: Atraumatic. Normocephalic. EYES: Pupils equal and round. No scleral icterus. No injection or drainage. ENT: No nasal bleeding or discharge. Mucous membranes pink and moist. NECK: Trachea midline. No JVD. CARDIOVASCULAR: Regular rate and rhythm. No murmur appreciated. RESPIRATORY: No accessory muscle use. Clear to auscultation. Breath sounds equal bilaterally. GASTROINTESTINAL: Abdomen soft, non-tender, nondistended. Hepatic and splenic margins not palpable. MUSCULOSKELETAL: No obvious deformities. No clubbing. No cyanosis. No edema. No midline CT or L-spine tenderness, the patient when rising to get paperwork out of her purse does not seem to be in any distress, when she sits forward for my posterior examinations she screams. NEUROLOGICAL: Awake and alert. No obvious cranial nerve deficits. Rectal tone normal. motor grossly within normal limits. Normal speech. PSYCHIATRIC: Hyperactive, no suicidal no homicidal ideation Data Data Last Documented VS Vital Signs Date Time Temp Pulse Resp B/P (MAP) Pulse Ox O2 Delivery O2 Flow Rate FiO2 01/06/18 16:15 81 16 125/74 (91) 99 Room Air 01/06/18 13:51 98.0 Orders Orders Mri C Spine W&W/O Contrast (01/06/18 ) Mri L Spine W&W/O Contrast (01/06/18 ) Mri T Spine W & W/O Contrast (01/06/18 ) Basic Metabolic Panel (Bmp) (01/06/18 16:21) Complete Blood Count With Diff (01/06/18 16:21) Iv Access Insert/Monitor (01/06/18 16:21) Ecg Monitoring (01/06/18 16:21) Oximetry (01/06/18 16:21) Sodium Chloride 0.9% Flush (Ns Flush) (01/06/18 16:30) Urinalysis - C+S If Indicated (01/06/18 16:54) Gadodiamide Pf Inj (Omniscan Pf Inj) (01/06/18 17:22) Labs Laboratory Tests Test 01/06/18 16:51 White Blood Count 8.0 TH/MM3 Red Blood Count 3.84 MIL/MM3 Hemoglobin 11.8 GM/DL Hematocrit 34.8 % Mean Corpuscular Volume 90.5 FL Mean Corpuscular Hemoglobin 30.6 PG Mean Corpuscular Hemoglobin Concent 33.8 % Red Cell Distribution Width 14.4 % Platelet Count 221 TH/MM3 Mean Platelet Volume 8.5 FL Neutrophils (%) (Auto) 53.0 % Lymphocytes (%) (Auto) 36.3 % Monocytes (%) (Auto) 6.2 % Eosinophils (%) (Auto) 3.8 % Basophils (%) (Auto) 0.7 % Neutrophils # (Auto) 4.2 TH/MM3 Lymphocytes # (Auto) 2.9 TH/MM3 Monocytes # (Auto) 0.5 TH/MM3 Eosinophils # (Auto) 0.3 TH/MM3 Basophils # (Auto) 0.1 TH/MM3 CBC Comment DIFF FINAL Differential Comment Blood Urea Nitrogen 14 MG/DL Creatinine 1.03 MG/DL Random Glucose 72 MG/DL Calcium Level 8.8 MG/DL Sodium Level 142 MEQ/L Potassium Level 3.6 MEQ/L Chloride Level 106 MEQ/L Carbon Dioxide Level 30.8 MEQ/L Anion Gap 5 MEQ/L Estimat Glomerular Filtration Rate 55 ML/MIN MDM Medical Decision Making Medical Screen Exam Complete: Yes Emergency Medical Condition: Yes Differential Diagnosis Discitis, osteomyelitis, cauda equina syndrome. More likely this is probably malingering. Narrative Course Patient room to the emergency department, my index of suspicion for cauda equina syndrome is fairly low but the patient does have risk factors including IV drug abuse. I have ordered an MRI of her spine to be on the safe albeit conservative side. The patient will be discussed with Dr. Garza at 1700 shift change to follow-up the patient's MRI and disposition appropriately. Condition: Stable Nate Samuel MD Jan 06, 2018 16:22
[2018-01-06] MEDS ORDERED: SODIUM CHLORIDE 0.9% FLUSH 10 ML FLUSH IV FLUSH PRN ×2 (16:30→20:45)
[2018-01-06 17:06] LABS: AUTOMATED NEUTROPHIL # 4.2 TH/MM3 (1.8-7.7); BASOPHIL # 0.1 TH/MM3 (0-0.2); BASOPHIL % 0.7 % (0.0-2.0); EOSINOPHIL # 0.3 TH/MM3 (0-0.4); EOSINOPHIL % 3.8 % (0.0-4.0); HEMATOCRIT 34.8 % (35.0-46.0); HEMOGLOBIN 11.8 GM/DL (11.6-15.3); LYMPH % 36.3 % (9.0-44.0); LYMPHOCYTE # 2.9 TH/MM3 (1.0-4.8); MEAN CELL VOLUME 90.5 FL (80.0-100.0); MEAN CORPUSCULAR HEMOGLOBIN 30.6 PG (27.0-34.0); MEAN CORPUSCULAR HGB CONC 33.8 % (32.0-36.0); MEAN PLATELET VOLUME 8.5 FL (7.0-11.0); MONO % 6.2 % (0.0-8.0); MONOCYTE # 0.5 TH/MM3 (0-0.9); PLATELET COUNT 221 TH/MM3 (150-450); RED BLOOD COUNT 3.84 MIL/MM3 (4.00-5.30); RED CELL DISTRIBUTION WIDTH 14.4 % (11.6-17.2)
[2018-01-06 17:12] LABS: BICARBONATE 30.8 MEQ/L (21.0-32.0); CALCIUM 8.8 MG/DL (8.5-10.1); CREATININE 1.03 MG/DL (0.50-1.00)
[2018-01-06] MEDS ORDERED: GADODIAMIDE PF 287 MG/ML 20 ML VIAL (for RAD MRI) IVCONTRAST ONE (17:22)
--- NOTE | 2018-01-06 18:07 | RADRPT ---
EXAM DATE/TIME: 01/06/2018 17:08 [facility] COMPARISON: No previous studies available for comparison. INDICATIONS : Incontinence. CONTRAST: 16 cc Omniscan (gadodiamide) IV MEDICAL HISTORY : Arthritis. Hypertension. SURGICAL HISTORY : Inguinal hernia repair. Hysterectomy. Cholecystectomy. ENCOUNTER: Initial ACUITY: 1 day PAIN SCORE: 3/10 LOCATION: [facility] TECHNIQUE: Multiplanar multisequence MRI of the thoracic spine was performed. FINDINGS: VERTEBRA: Normal vertebral body height. Homogeneous marrow signal. ALIGNMENT: Normal. CORD: Normal position and configuration. POST CONTRAST: No abnormal areas of contrast enhancement seen. T1-T2: Normal. T2-T3: The thecal sac has a normal diameter. No evidence of disc bulge or protrusion. T3-T4: The thecal sac has a normal diameter. No evidence of disc bulge or protrusion. T4-T5: The thecal sac has a normal diameter. No evidence of disc bulge or protrusion. T5-T6: The thecal sac has a normal diameter. No evidence of disc bulge or protrusion. T6-T7: The thecal sac has a normal diameter. No evidence of disc bulge or protrusion. T7-T8: The thecal sac has a normal diameter. No evidence of disc bulge or protrusion. T8-T9: The thecal sac has a normal diameter. No evidence of disc bulge or protrusion. T9-T10: The thecal sac has a normal diameter. No evidence of disc bulge or protrusion. T10-T11: The thecal sac has a normal diameter. No evidence of disc bulge or protrusion. T11-T12: The thecal sac has a normal diameter. No evidence of disc bulge or protrusion. T12-L1: The thecal sac has a normal diameter. No evidence of disc bulge or protrusion. CONCLUSION: Normal examination. Derian Mo MD on January 06, 2018 at 18:03 Board Certified Radiologist. This report was verified electronically.
--- NOTE | 2018-01-06 18:10 | RADRPT ---
EXAM DATE/TIME: 01/06/2018 17:08 [facility] COMPARISON: No previous studies available for comparison. INDICATIONS : Incontinence. CONTRAST: 16 cc Omniscan (gadodiamide) IV MEDICAL HISTORY : Arthritis. Hypertension. SURGICAL HISTORY : Cholecystectomy. Hysterectomy. Inguinal hernia repair. ENCOUNTER: Initial ACUITY: 1 day PAIN SCORE: 3/10 LOCATION: [facility] TECHNIQUE: Multiplanar, multisequence MRI examination of the cervical spine was performed. FINDINGS: VERTEBRAE: Normal vertebral body height. Homogeneous marrow signal. ALIGNMENT: No evidence of subluxation. CORD: Normal configuration and signal. POST FOSSA: The cerebellar tonsils are normal in position. POST-CONTRAST: No abnormal areas of enhancement are seen. C2-C3: The thecal sac has a normal configuration. There is no evidence of disc herniation or spinal canal stenosis. The neural foramina are patent bilaterally. C3-C4: Broad mild right paracentral disc protrusion mildly indenting the thecal sac in the lateral recess. M ild asymmetrical right-sided foraminal narrowing. No evidence of canal compromise C4-C5: Broad mild undulating dorsal disc protrusion. Slight indentation of the thecal sac. Mild bilateral fo raminal stenosis. C5-C6: Minimal broad undulating dorsal disc protrusion most prominent in a paracentral location bilaterally no evidence of canal or foraminal compromise. C6-C7: Minimal broad dorsal disc protrusion. No significant canal or foraminal compromise. C7-T1: The thecal sac has a normal configuration. There is no evidence of disc herniation or spinal canal s tenosis. The neural foramina are patent bilaterally. CONCLUSION: Mild multilevel disc abnormalities as described. None of these produce any significant canal compromi se, however there is mild asymmetrically right-sided foraminal stenosis at C3-4 and bilateral foramin al stenosis at C4-5. Derian Mo MD on January 06, 2018 at 18:05 Board Certified Radiologist. This report was verified electronically.
--- NOTE | 2018-01-06 18:44 | RADRPT ---
EXAM DATE/TIME: 01/06/2018 17:08 [facility] COMPARISON: CT LUMBAR SPINE W/O CONTRAST, November 18, 2016, 18:42. INDICATIONS : Incontinence. CONTRAST: 16 cc Omniscan (gadodiamide) IV MEDICAL HISTORY : Arthritis. Hypertension. SURGICAL HISTORY : Inguinal hernia repair. Hysterectomy. Cholecystectomy. ENCOUNTER: Initial ACUITY: 1 day PAIN SCORE: 3/10 LOCATION: Paraspinal TECHNIQUE: Multiplanar multisequence MRI of the lumbar spine was performed with and without contrast. FINDINGS: The most caudal appearing lumbar vertebra is numbered as L5. VERTEBRAE: Homogeneous signal. Normal alignment. CONUS: Normal level and configuration. POST CONTRAST: No abnormal areas of contrast enhancement are seen. T12-L1: The thecal sac has a normal diameter. No evidence of disc bulge or protrusion. The neural foramina are patent bilaterally. L1-L2: The thecal sac has a normal diameter. No evidence of disc bulge or protrusion. The neural foramina are patent bilaterally. L2-L3: The thecal sac has a normal diameter. No evidence of disc bulge or protrusion. The neural foramina are patent bilaterally. L3-L4: There is mild diffuse disc bulge. There is a 1.5 x 0.8 x 0.9 cm cyst seen at the left epidural space almost certainly representing a medially directed synovial cyst of the left facet joint. There is enh ancement of the rim of this cyst. There is enhancement of both facet joints at this level. Some super imposed inflammatory/infectious process cannot be absolutely excluded. The disc and presumed synovial cyst result in moderate to severe stenosis. In CSF is not seen around the nerve roots at the disc le rose. There is narrowing of the neural foramina bilaterally being worse on the left. L4-L5: The disc demonstrates decreased signal. There is mild central disc protrusion causing a very mild imp ression on the anterior aspect of the thecal sac. There continues to be CSF around the nerve roots. T here is moderate facet hypertrophy. There is fluid in the facet joints. The neural foramina are gross ly patent. L5-S1: The thecal sac has a normal diameter. No evidence of disc bulge or protrusion. The neural foramina are patent bilaterally. CONCLUSION: 1. Moderate to severe stenosis at the L3-L4 level caused by combination of mild disc bulge and a medi ally directed left synovial cyst of the left facet joint. The synovial cyst could potentially be deco mpressed with interventional radiology directed aspiration. 2. Prominent enhancement of the L3-L4 facet joints likely from inflammatory arthritic change. Infecti on cannot be excluded in the correct clinical situation. 3. Moderate facet hypertrophy at the L4-L5 level. Derian Parker MD on January 06, 2018 at 18:07 Board Certified Radiologist. This report was verified electronically.
--- NOTE | 2018-01-06 20:00 | PD ---
Physical Exam Narrative Patient was seen by ED physician and signed out to me. Data Data Last Documented VS Vital Signs Date Time Temp Pulse Resp B/P (MAP) Pulse Ox O2 Delivery O2 Flow Rate FiO2 01/06/18 20:09 75 19 173/96 (121) 100 Room Air 01/06/18 13:51 98.0 Orders Orders Mri C Spine W&W/O Contrast (01/06/18 ) Mri L Spine W&W/O Contrast (01/06/18 ) Mri T Spine W & W/O Contrast (01/06/18 ) Basic Metabolic Panel (Bmp) (01/06/18 16:21) Complete Blood Count With Diff (01/06/18 16:21) Iv Access Insert/Monitor (01/06/18 16:21) Ecg Monitoring (01/06/18 16:21) Oximetry (01/06/18 16:21) Sodium Chloride 0.9% Flush (Ns Flush) (01/06/18 16:30) Urinalysis - C+S If Indicated (01/06/18 16:54) Gadodiamide Pf Inj (Omniscan Pf Inj) (01/06/18 17:22) C-Reactive Protein (Crp) (01/06/18 20:11) Westergren Sedimentation Rate (01/06/18 20:11) Sodium Chlor 0.9% 1000 Ml Inj (Ns 1000 M (01/06/18 20:15) Labs Laboratory Tests Test 01/06/18 16:51 01/06/18 19:39 White Blood Count 8.0 TH/MM3 Red Blood Count 3.84 MIL/MM3 Hemoglobin 11.8 GM/DL Hematocrit 34.8 % Mean Corpuscular Volume 90.5 FL Mean Corpuscular Hemoglobin 30.6 PG Mean Corpuscular Hemoglobin Concent 33.8 % Red Cell Distribution Width 14.4 % Platelet Count 221 TH/MM3 Mean Platelet Volume 8.5 FL Neutrophils (%) (Auto) 53.0 % Lymphocytes (%) (Auto) 36.3 % Monocytes (%) (Auto) 6.2 % Eosinophils (%) (Auto) 3.8 % Basophils (%) (Auto) 0.7 % Neutrophils # (Auto) 4.2 TH/MM3 Lymphocytes # (Auto) 2.9 TH/MM3 Monocytes # (Auto) 0.5 TH/MM3 Eosinophils # (Auto) 0.3 TH/MM3 Basophils # (Auto) 0.1 TH/MM3 CBC Comment DIFF FINAL Differential Comment Blood Urea Nitrogen 14 MG/DL Creatinine 1.03 MG/DL Random Glucose 72 MG/DL Calcium Level 8.8 MG/DL Sodium Level 142 MEQ/L Potassium Level 3.6 MEQ/L Chloride Level 106 MEQ/L Carbon Dioxide Level 30.8 MEQ/L Anion Gap 5 MEQ/L Estimat Glomerular Filtration Rate 55 ML/MIN Urine Color YELLOW Urine Turbidity HAZY Urine pH 7.5 Urine Specific [place] 1.011 Urine Protein NEG mg/dL Urine Glucose (UA) NEG mg/dL Urine Ketones NEG mg/dL Urine Occult Blood NEG Urine Nitrite NEG Urine Bilirubin NEG Urine Urobilinogen 2.0 MG/DL Urine Leukocyte Esterase LARGE Urine RBC 1 /hpf Urine WBC 7 /hpf Urine Squamous Epithelial Cells 1 /hpf Urine Amorphous Sediment FEW Urine Bacteria RARE /hpf Urine Mucus FEW /lpf Microscopic Urinalysis Comment CULT NOT INDICATED MDM Supervised Visit with CECILY: No Interpretation(s) Patient was seen by ED physician and signed out to me. Last Impressions Thoracic Spine MRI 01/06/18 0000 Signed Impressions: Service Date/Time: Saturday, January 06, 2018 17:08 - CONCLUSION: Normal examination. Derian Mo MD Lumbar Spine MRI 01/06/18 0000 Signed Impressions: Service Date/Time: Saturday, January 06, 2018 17:08 - CONCLUSION: 1. Moderate to severe stenosis at the L3-L4 level caused by combination of mild disc bulge and a medially directed left synovial cyst of the left facet joint. The synovial cyst could potentially be decompressed with interventional radiology directed aspiration. 2. Prominent enhancement of the L3-L4 facet joints likely from inflammatory arthritic change. Infection cannot be excluded in the correct clinical situation. 3. Moderate facet hypertrophy at the L4-L5 level. Derian Parker MD Cervical Spine MRI 01/06/18 0000 Signed Impressions: Service Date/Time: Saturday, January 06, 2018 17:08 - CONCLUSION: Mild multilevel disc abnormalities as described. None of these produce any significant canal compromise, however there is mild asymmetrically right-sided foraminal stenosis at C3-4 and bilateral foraminal stenosis at C4-5. Derian Mo MD 1957 PM. CBC within normal limits. WBC 8.0. Normal differential. Creatinine 1.03. Narrative Course Patient was seen by ED physician and signed out to me. Diagnosis Primary Impression: Spinal stenosis Qualified Codes: M48.061 - Spinal stenosis, lumbar region without neurogenic claudication Admitting Information Admitting Physician Requests: Admit Condition: Stable Nam Garza MD Jan 06, 2018 20:00
[2018-01-06 20:15] LABS: AMORPHOUS SEDIMENT, URINE FEW; BACTERIA, URINE RARE /hpf; BILIRUBIN, URINE NEG (NEG); BLOOD, URINE NEG (NEG); GLUCOSE,URINE NEG (NEG); KETONE, URINE NEG (NEG); MUCUS URINE FEW /lpf (OCC); NITRITE,URINE NEG (NEG); PH, URINE 7.5 (5.0-8.5); SQUAMOUS EPITHELIAL CELL URINE 1 /hpf (0-5); URINE COLOR YELLOW (YELLW/STRAW); URINE LEUKOCYTE ESTERASE LARGE (NEG)
[2018-01-06] MEDS ORDERED: SODIUM CHLOR 0.9% 1000 ML INJ 1,000 ML IV SCH (20:15)
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
[2018-01-06] MEDS ORDERED: MAGNESIUM HYDROXIDE SUSP 30 ML CUP PO PRN (20:45)
[2018-01-06] MEDS ORDERED: ONDANSETRON HCL 4 MG/2 ML VIAL IVP PRN (20:45)
[2018-01-06] MEDS ORDERED: BISACODYL 10 MG SUPP RECTAL PRN (20:45)
[2018-01-06] MEDS ORDERED: SENNOSIDES 8.6 MG TAB PO PRN (20:45)
[2018-01-06] MEDS ORDERED: LACTULOSE SYRUP 20 GM/30 ML CUP PO PRN (20:45)
[2018-01-06] MEDS: SODIUM CHLORIDE 0.9% FLUSH 10 ML FLUSH IV FLUSH SCH (21:00)
[2018-01-06] MEDS: DOCUSATE SODIUM 50 MG/SENNA 8.6 MG TAB PO SCH (21:00)
[2018-01-06] MEDS: SODIUM CHLOR 0.9% 1000 ML INJ 1,000 ML IV SCH (22:39)
[2018-01-06] MEDS ORDERED: ALPRAZolam 1 MG TAB PO PRN (23:15)
[2018-01-07] VITALS (9 sets, daily range): BP systolic 114–134; BP diastolic 60–84; PULSE 65–72; RESP 16–20; TEMP 97.2–98.5; O2SAT 10–100
[2018-01-07 04:32] LABS: AUTOMATED NEUTROPHIL # 1.7 TH/MM3 (1.8-7.7); BASOPHIL % 0.5 % (0.0-2.0); EOSINOPHIL # 0.3 TH/MM3 (0-0.4); EOSINOPHIL % 6.7 % (0.0-4.0); HEMATOCRIT 31.5 % (35.0-46.0); HEMOGLOBIN 10.8 GM/DL (11.6-15.3); LYMPH % 52.3 % (9.0-44.0); LYMPHOCYTE # 2.8 TH/MM3 (1.0-4.8); MEAN CELL VOLUME 90.2 FL (80.0-100.0); MEAN CORPUSCULAR HEMOGLOBIN 30.9 PG (27.0-34.0); MEAN CORPUSCULAR HGB CONC 34.3 % (32.0-36.0); MEAN PLATELET VOLUME 8.6 FL (7.0-11.0); MONO % 8.7 % (0.0-8.0); MONOCYTE # 0.5 TH/MM3 (0-0.9); NEUT % 31.8 % (16.0-70.0); PLATELET COUNT 181 TH/MM3 (150-450); RED BLOOD COUNT 3.49 MIL/MM3 (4.00-5.30); RED CELL DISTRIBUTION WIDTH 14.3 % (11.6-17.2); WHITE BLOOD COUNT 5.3 TH/MM3 (4.0-11.0)
[2018-01-07 04:44] LABS: ALBUMIN 2.6 GM/DL (3.4-5.0); ALT (GPT) 78 U/L (10-53); AST (GOT) 80 U/L (15-37); BICARBONATE 30.9 MEQ/L (21.0-32.0); BLOOD UREA NITROGEN 13 MG/DL (7-18); CALCIUM 8.1 MG/DL (8.5-10.1); CHLORIDE 109 MEQ/L (98-107); CREATININE 0.81 MG/DL (0.50-1.00); GLOMERULAR FILTRATION RATE 73 ML/MIN (>89); GLUCOSE,RANDOM 73 MG/DL (74-106); MAGNESIUM 2.1 MG/DL (1.5-2.5); SODIUM (NA) 145 MEQ/L (136-145)
[2018-01-07 04:46] LABS: ALKALINE PHOSPHATASE 75 U/L (45-117); TOTAL BILIRUBIN ADULT 0.3 MG/DL (0.2-1.0); TOTAL PROTEIN 6.1 GM/DL (6.4-8.2)
[2018-01-07] MEDS ORDERED: ceFAZolin 2 GM PREMIX 50 ML IV SCH (06:00)
[2018-01-07] MEDS: SODIUM CHLOR 0.9% 1000 ML INJ 1,000 ML IV SCH ×2 (06:43→17:49)
[2018-01-07] MEDS: DOCUSATE SODIUM 50 MG/SENNA 8.6 MG TAB PO SCH ×2 (08:12→20:29)
[2018-01-07] MEDS: GABAPENTIN 300 MG CAP PO SCH ×3 (08:12→17:50)
[2018-01-07] MEDS: DULoxetine HCl DR 60 MG CAP PO SCH ×2 (08:12→20:29)
[2018-01-07] MEDS: SODIUM CHLORIDE 0.9% FLUSH 10 ML FLUSH IV FLUSH SCH ×2 (08:14→20:29)
--- NOTE | 2018-01-07 09:11 | HHI.PR ---
Subjective Remarks In bed says she has pain in her back and her legs are weak. Says she wants surgery. Says he has multiple falls recently and cant walk. No n/v/d/c. Denies chest pain or sob. Objective Vitals Vital Signs Date Time Temp Pulse Resp B/P (MAP) Pulse Ox O2 Delivery O2 Flow Rate FiO2 01/07/18 08:02 98.1 70 18 125/81 (96) 100 01/07/18 07:00 Room Air 01/07/18 04:00 70 01/07/18 04:00 97.8 68 18 114/81 (92) 98 01/07/18 01:14 97.6 72 16 134/84 (101) 99 01/06/18 23:55 71 01/06/18 23:50 78 01/06/18 23:00 Room Air 01/06/18 22:39 97.9 60 20 151/95 (113) 100 01/06/18 22:13 76 01/06/18 20:09 75 19 173/96 (121) 100 Room Air 01/06/18 16:15 81 16 125/74 (91) 99 Room Air 01/06/18 13:51 98.0 96 18 146/65 (92) 96 I/O 01/06/18 01/06/18 01/06/18 01/07/18 01/07/18 01/07/18 07:00 15:00 23:00 07:00 15:00 23:00 Intake Total 999 ml 480 ml Balance 999 ml 480 ml Intake Oral 480 ml IV Total 999 ml # Voids 3 # Bowel Movements 0 Result Diagram: 01/07/18 0400 01/07/18 0400 Imaging Last Impressions Thoracic Spine MRI 01/06/18 0000 Signed Impressions: Service Date/Time: Saturday, January 06, 2018 17:08 - CONCLUSION: Normal examination. Derian Mo MD Lumbar Spine MRI 01/06/18 0000 Signed Impressions: Service Date/Time: Saturday, January 06, 2018 17:08 - CONCLUSION: 1. Moderate to severe stenosis at the L3-L4 level caused by combination of mild disc bulge and a medially directed left synovial cyst of the left facet joint. The synovial cyst could potentially be decompressed with interventional radiology directed aspiration. 2. Prominent enhancement of the L3-L4 facet joints likely from inflammatory arthritic change. Infection cannot be excluded in the correct clinical situation. 3. Moderate facet hypertrophy at the L4-L5 level. Derian Parker MD Cervical Spine MRI 01/06/18 0000 Signed Impressions: Service Date/Time: Saturday, January 06, 2018 17:08 - CONCLUSION: Mild multilevel disc abnormalities as described. None of these produce any significant canal compromise, however there is mild asymmetrically right-sided foraminal stenosis at C3-4 and bilateral foraminal stenosis at C4-5. Derian Mo MD Objective Remarks GENERAL: Middle-aged white female in no acute distress, hyperactive, tangential speech HEENT: PERRLA, EOMI. No scleral icterus or conjunctival pallor. No lid lag or facial droop. CARDIOVASCULAR: Regular rate and rhythm. No obvious murmurs to auscultation. No chest tenderness to palpation. RESPIRATORY: No obvious rhonchi or wheezing. Clear to auscultation. Breath sounds equal bilaterally. GASTROINTESTINAL: Abdomen soft, non-tender, nondistended. BS normal. MUSCULOSKELETAL: Extremities without clubbing, cyanosis, or edema. No obvious deformities. No lumbar tenderness to palpation. NEUROLOGICAL: Awake, alert and oriented x4. No focal neurologic deficits. Moving both upper and lower extremities spontaneously. A/P Problem List: (1) Spinal stenosis ICD Code: M48.00 - Spinal stenosis, site unspecified Status: Acute (2) Weakness ICD Code: R53.1 - Weakness (3) IVDU (intravenous drug user) ICD Code: F19.90 - Other psychoactive substance use, unspecified, uncomplicated Assessment and Plan Spinal Stenosis: reports incontinence feces/urine w/ weakness, MRI L-Spine w/ mod-severe spinal stenosis at L3-L4 caused by disc bulge and left synovial cyst , likely amenable to decompression by IR. In light of weakness/incontinence will consult NxSx for further evaluation, MRI w/ questionable area of infection , images reviewed by me, concerning in light of +IVDU, CRP/ESR negative. Discussed with Dr Jackson neurosurgery, patient is a candidate for surgery however if patient is homeless can;t do surgery as she is a risk of infection after surgery. Discussed with Cm, patient is not homeless Weakness and multiple falls 2/2 spinal stenosis. PT for eval/tx. IVDU: Denies recent use, states hasn't used "in years", however UDS from positive for Cocaine/Amphetamines/Benzo. Ativan prn DVT Prophylaxis: SCD/Teds. CM for DC planning as needed. Problem Qualifiers (1) Spinal stenosis: Qualified Codes: M48.061 - Spinal stenosis, lumbar region without neurogenic claudication Yareli Reeves MD Jan 07, 2018 09:11
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
--- NOTE | 2018-01-07 12:23 | RADRPT ---
EXAM DATE/TIME: 01/07/2018 12:04 [facility] COMPARISON: No previous studies available for comparison. INDICATIONS : Patient states lower back pain. MEDICAL HISTORY : Arthritis. Hypertension SURGICAL HISTORY : Cholecystectomy. Hysterectomy. Inguinal hernia repair. ENCOUNTER: Initial ACUITY: 2 days PAIN SCORE: 9/10 LOCATION: Bilateral Lumbar FINDINGS: Lateral views of the lumbar spine were performed in flexion and extension. Grade 1 anterolisthesis o f L3 on 4 and L4 on L5, stable in the neutral, flexed and extended positions. Vertebral body heights are maintained throughout. Small spur off the superior endplate of L4 anteriorly CONCLUSION: 1. Grade 1 anterolisthesis of L3 on 4 and L4 on L5, stable in flexion, extension and the neutral posi tion. 2. No fracture. Osmin Newman MD on January 07, 2018 at 12:19 Board Certified Radiologist. This report was verified electronically.
[2018-01-07] MEDS: CHLORHEXIDINE GLUCONATE 4% SOLN 120 ML BTL TOP SCH (21:00)
[2018-01-08] VITALS: BP 148/63; PULSE 73; RESP 20; TEMP 97.9; O2SAT 95
[2018-01-08] MEDS: SODIUM CHLOR 0.9% 1000 ML INJ 1,000 ML IV SCH ×2 (02:23→12:10)
[2018-01-08] MEDS ORDERED: SODIUM CHLORID 0.9% 500 ML IV PRN (03:30)
[2018-01-08] MEDS ORDERED: CHLORHEXIDINE GLUCONATE 2 % 1 PACK (2 CLOTHS) TOPICAL PRN (03:30)
[2018-01-08] MEDS ORDERED: LACTATED RINGER'S 1000 ML IV PRN (03:30)
[2018-01-08] MEDS ORDERED: METOPROLOL TARTRATE 25 MG TAB PO PRN (03:30)
[2018-01-08] MEDS ORDERED: POVIDONE IODINE 5% (ANTISEPSIS KIT) 4 APPLICATIONS EACH NARE PRN (03:30)
[2018-01-08 03:46] VITALS: PULSE 64
[2018-01-08 03:52] VITALS: BP 112/63; PULSE 70; RESP 16; TEMP 98; O2SAT 98
[2018-01-08 08:00] VITALS: BP 142/91; PULSE 62; PULSE 68; RESP 16; TEMP 98.1; O2SAT 98
[2018-01-08] MEDS: DOCUSATE SODIUM 50 MG/SENNA 8.6 MG TAB PO SCH ×2 (09:00→21:47)
[2018-01-08] MEDS: SODIUM CHLORIDE 0.9% FLUSH 10 ML FLUSH IV FLUSH SCH ×2 (09:00→21:46)
[2018-01-08] MEDS ORDERED: CHLORHEXIDINE GLUCONATE 2 % 1 PACK (2 CLOTHS) TOPICAL ONE (09:00)
[2018-01-08] MEDS: DULoxetine HCl DR 60 MG CAP PO SCH ×2 (09:02→21:45)
[2018-01-08] MEDS: GABAPENTIN 300 MG CAP PO SCH ×3 (09:02→18:32)
[2018-01-08] MEDS ORDERED: ARTIFICIAL TEARS OPTH OINT 3.5 APPLIC/3.5 GM TUBO ONE (11:09)
[2018-01-08] MEDS ORDERED: ACETAMINOPHEN 1000 MG/100 ML 0 ML IV ONE (11:09)
[2018-01-08] MEDS ORDERED: ROCURONIUM INJ 50 MG/5 ML SYRINGE IV PUSH ONE (12:00)
[2018-01-08] MEDS ORDERED: ePHEDrine/NS 25 MG/5 ML SYRINGE IV ONE (12:00)
[2018-01-08] MEDS ORDERED: LIDOCAINE HCL 1% PF 5 ML SYRINGE OTHER ONE (12:00)
[2018-01-08] MEDS ORDERED: PHENYLEPH/NS 1000 MCG/10 ML SYR IV ONE (12:00)
[2018-01-08] MEDS ORDERED: PROPOFOL 200 MG/20 ML AMP IV ONE (12:00)
[2018-01-08] MEDS ORDERED: ONDANSETRON HCL 4 MG/2 ML VIAL IV ONE (12:00)
[2018-01-08] MEDS ORDERED: LACTATED RINGER'S 1000 ML INJ 2,000 ML IV ONE (12:00)
[2018-01-08] MEDS ORDERED: NEOSTIGMINE 5 MG/5 ML SYRINGE IV PUSH ONE (12:00)
[2018-01-08] MEDS ORDERED: GLYCOPYRROLATE 1 MG/5 ML SYRINGE IV PUSH ONE (12:00)
[2018-01-08] MEDS ORDERED: BUPIVACAINE HCL PF 0.5% 30 ML VIAL ONE (13:02)
[2018-01-08] MEDS ORDERED: THROMBIN (TOPICAL) 5,000 UNIT VIAL ONE (13:26)
[2018-01-08] MEDS ORDERED: GELFOAM SIZE 100 ONE (13:26)
[2018-01-08] MEDS ORDERED: GENTAMICIN SULFATE 80 MG/2 ML VIAL ONE (13:26)
[2018-01-08] MEDS ORDERED: methylPREDNISolone ACETATE 40 MG/ML VIAL ONE (14:03)
[2018-01-08] MEDS ORDERED: MORPHINE SULFATE 4 MG/ML INJ IV PUSH PRN (14:15)
[2018-01-08] MEDS ORDERED: ACETAMINOPHEN/HYDROcodone 325 MG/10 MG TAB PO PRN ×2 (14:15)
[2018-01-08] MEDS ORDERED: MORPHINE SULFATE 2 MG/ML SYRINGE IV PUSH PRN (14:15)
[2018-01-08] MEDS ORDERED: ACETAMINOPHEN 325 MG TAB PO PRN (14:15)
--- NOTE | 2018-01-08 14:16 | PD.OP ---
Operative Report Surgeon: Chino Edwards MD Jan 08, 2018 14:16
[2018-01-08] MEDS ORDERED: DO NOT ADM ANY ANTICOAGULANT DRUGS PRN (14:46)
[2018-01-08] MEDS: NS + KCL 20 MEQ INJ 1,000 ML IV SCH ×2 (15:20→23:04)
--- NOTE | 2018-01-08 15:20 | EKG ---
Date Performed: 01/08/2018 Time Performed: 09:24:54 PTAGE: 57 years EKG: Sinus rhythm . Since the previous tracing, no significant change noted Normal ECG PREVIOUS TRACING : 06/23/2017 10.23 DOCTOR: Silvio Poole Interpretating Date/Time 01/08/2018 15:16:03
[2018-01-08] MEDS ORDERED: *morphine SULFATE 8 MG/ML PERIprocedure ONLY ONE ×3 (15:22→16:13)
--- NOTE | 2018-01-08 15:22 | PD.OP ---
Operative Report Date of Surgery: Jan 08, 2018 Preoperative Diagnosis: L3-4 epidural mass, suspected synovial cyst Postoperative Diagnosis: L3-4 epidural synovial cyst Procedure: L3-4 left hemilaminectomy, resection of synovial cyst Anesthesia: general Surgeon: Chino Jackson Sales And Marketing Director(s): Jodie Burden Operation and Findings: INDICATIONS FOR THE SURGICAL PROCEDURE Ms Amaya is a 61 year-old female who presented with intractable back pain and jono evidence of left L4 lower extremity radiculopathy. She was found to have severe lumbar spinal stenosis with a large synovial cyst arising from the L3-L4 left facets causing severe neural compression. She failed maximum nonsurgical.. A surgical decompression was indicated as a last resort. The [id number] details of the procedure, indications, alternatives, risks and potential complications were fully discussed with the patient. The patient fully understood. All the questions were answered. No guarantees were given. The patient voiced requesting the procedure and provided informed consents. The patient was offered the alternative of delaying the procedure and continuing with nonsurgical management. DETAILS OF THE SURGICAL PROCEDURE After the induction of general anesthesia, endotracheal intubation was performed. A Fink catheter, bilateral TRISH hose and sequential compression devices were placed and kept throughout the procedure. The patient was positioned prone on a Dusty table over a Brandon frame. All pressure points were carefully padded with eggcrate mattress. The eyes were tapped shut after ointment was applied by the anesthesiologist to prevent corneal abrasion. A Maryann hugger was placed over the exposed lower body to maintain control of the core body temperature. The lower lumbar region was prepped and draped in the usual sterile fashion. A spinal needle was placed on the paraspinal muscle and a cross-table lateral x-ray performed with a C-arm. The skin incision was made over the spinous process of L3 and L4 along the midline. Small subcutaneous bleeders were controlled with a bipolar. The subcutaneous tissue and thoracolumbar fascia was opened with the Bovie and the spinous process of L3 and L4 were exposed. Then, using a Montague elevator and a Bovie a subperiosteal dissection was performed over the spinous process lamina and facet at L3 and L4 on the left side. A microdiscectomy self-retaining retractor was placed and an instrument was placed underneath the lamina of L3, and another cross-table lateral x-ray performed for radiological confirmation of the level. At this point in the procedure the operating microscope was draped in the usual sterile fashion and brought to the field. The rest of the surgical procedure was performed using microsurgical dissection technique with exception of the closure. Once the level was confirmed, a TPS drill brought to the field and a hemilaminectomy was performed at L3-L4 on the left side in standard fashion using the AM-8 drill bit, exposing the ligamentum flavum. The superior free border of the ligamentum flavum was from the dura with a ligament dissector and the ligamentum flavum was carefully removed with a 3 mm thin footplate Kerrison. The ligament Flavum and facets were significantly hypertrophic resulting on mass effect on the dural sac. Then, the medial aspect of the facet was drilled and undermined and the exiting L5 nerve root was identified and followed towards the foramen. A foraminotomy was performed with a 3 mm Kerrison. Then, the TPS drill was used to undermine the base of the spinous process, in order to carry out the decompression across the midline to the contralateral side. The ligamentum flavum across the midline was dissected from the dura with a ligament dissector and carefully removed with a 3 mm thin footplate Kerrison. A large synovial cyst was identified, callusing significant mass effect on the due to sac and exiting L5 nerve root. Using a ligament dissector was carefully dissected from the surrounding tissues. Disease was very adherent to the due to sac and extreme care was taking viewed in the dissection to avoid a dural tear and CSF leak. A gross total resection of the C-spine was achieved, which was sent to pathology for histopathological analysis. An appropriate decompression of the dural sac and nerve root was achieved. Epidural veins located laterally to the dural sac were carefully coagulated with a bipolar and incised with microscissors. Gentle medial retraction of the dural sac allowed inspection of the disc space. The patient disk was unremarkable. Microdiscectomy was not deemed necessary. The incision was then thoroughly irrigated with antibiotic solution and hemostasis secured with the bipolar. A Valsalva maneuver failed to show any cerebrospinal fluid leak or bleeding. The incision was irrigated and closed in layers. 0 Vicryl with interrupted sutures was used to close the thoracolumbar fascia and superficial fascia. The subcutaneous tissue was closed with 3-0 Vicryl. The skin was closed with 4-0 running subcuticular Vicryl. Dermabond was applied to the skin. At the end of the procedure, the sponge, needle and instrument counts were all correct. Estimated blood loss was less than 40 cc. No blood transfusion was given. No intraoperative complications occurred. The patient received prophylactic antibiotics. The patient was then extubated and transferred to the recovery room in stable condition. Chino Jackson MD Jan 08, 2018 15:22
--- NOTE | 2018-01-08 15:41 | HHI.PR ---
Subjective Remarks Seen earlier today. Plan for surgery by Dr. Jackson today. Since she has pain in her back not able to walk. No chest pain or shortness of breath no nausea vomiting or diarrhea constipation. Objective Vitals Vital Signs Date Time Temp Pulse Resp B/P (MAP) Pulse Ox O2 Delivery O2 Flow Rate FiO2 01/08/18 15:30 74 20 156/77 (103) 100 01/08/18 15:15 72 20 169/99 (122) 100 01/08/18 15:00 75 20 156/77 (103) 100 01/08/18 14:45 98.0 96 16 170/93 (118) 99 Room Air 01/08/18 08:00 Room Air 01/08/18 08:00 98.1 68 16 142/91 (108) 98 01/08/18 03:52 98.0 70 16 112/63 (79) 98 01/08/18 03:52 Room Air 01/08/18 03:46 64 01/08/18 00:00 97.9 73 20 148/63 (91) 95 01/07/18 20:00 97.2 70 20 114/60 (78) 100 01/07/18 20:00 Room Air 01/07/18 16:01 98.5 69 18 130/76 (94) 100 01/07/18 16:00 65 I/O 01/07/18 01/07/18 01/07/18 01/08/18 01/08/18 01/08/18 07:00 15:00 23:00 07:00 15:00 23:00 Intake Total 480 ml 720 ml 600 ml 1500 ml Output Total 2500 ml 200 ml Balance 480 ml 720 ml -1900 ml 1300 ml Intake Oral 480 ml 720 ml 600 ml Other 1500 ml Output Urine Total 2500 ml 200 ml # Voids 3 4 # Bowel Movements 0 1 Result Diagram: 01/07/18 0400 01/07/18 0400 Imaging Last Impressions Lumbar Spine X-Ray 01/07/18 0000 Signed Impressions: Service Date/Time: Sunday, January 07, 2018 12:04 - CONCLUSION: 1. Grade 1 anterolisthesis of L3 on 4 and L4 on L5, stable in flexion, extension and the neutral position. 2. No fracture. Osmin Newman MD Thoracic Spine MRI 01/06/18 0000 Signed Impressions: Service Date/Time: Saturday, January 06, 2018 17:08 - CONCLUSION: Normal examination. Derian Mo MD Lumbar Spine MRI 01/06/18 0000 Signed Impressions: Service Date/Time: Saturday, January 06, 2018 17:08 - CONCLUSION: 1. Moderate to severe stenosis at the L3-L4 level caused by combination of mild disc bulge and a medially directed left synovial cyst of the left facet joint. The synovial cyst could potentially be decompressed with interventional radiology directed aspiration. 2. Prominent enhancement of the L3-L4 facet joints likely from inflammatory arthritic change. Infection cannot be excluded in the correct clinical situation. 3. Moderate facet hypertrophy at the L4-L5 level. Derian Parker MD Cervical Spine MRI 01/06/18 0000 Signed Impressions: Service Date/Time: Saturday, January 06, 2018 17:08 - CONCLUSION: Mild multilevel disc abnormalities as described. None of these produce any significant canal compromise, however there is mild asymmetrically right-sided foraminal stenosis at C3-4 and bilateral foraminal stenosis at C4-5. Derian Mo MD Objective Remarks GENERAL: Middle-aged white female in no acute distress, hyperactive, tangential speech HEENT: PERRLA, EOMI. No scleral icterus or conjunctival pallor. No lid lag or facial droop. CARDIOVASCULAR: Regular rate and rhythm. No obvious murmurs to auscultation. No chest tenderness to palpation. RESPIRATORY: No obvious rhonchi or wheezing. Clear to auscultation. Breath sounds equal bilaterally. GASTROINTESTINAL: Abdomen soft, non-tender, nondistended. BS normal. MUSCULOSKELETAL: Extremities without clubbing, cyanosis, or edema. No obvious deformities. No lumbar tenderness to palpation. NEUROLOGICAL: Awake, alert and oriented x4. No focal neurologic deficits. Moving both upper and lower extremities spontaneously. A/P Problem List: (1) Spinal stenosis ICD Code: M48.00 - Spinal stenosis, site unspecified Status: Acute (2) Weakness ICD Code: R53.1 - Weakness (3) IVDU (intravenous drug user) ICD Code: F19.90 - Other psychoactive substance use, unspecified, uncomplicated Assessment and Plan Spinal Stenosis: reports incontinence feces/urine w/ weakness, MRI L-Spine w/ mod-severe spinal stenosis at L3-L4 caused by disc bulge and left synovial cyst , likely amenable to decompression by IR. In light of weakness/incontinence will consult NxSx for further evaluation, MRI w/ questionable area of infection , images reviewed by me, concerning in light of +IVDU, CRP/ESR negative. Discussed with Dr Jackson neurosurgery, patient is a candidate for surgery however if patient is homeless can;t do surgery as she is a risk of infection after surgery. Discussed with Cm, patient is not homeless Weakness and multiple falls 2/2 spinal stenosis. PT for eval/tx. IVDU: Denies recent use, states hasn't used "in years", however UDS from positive for Cocaine/Amphetamines/Benzo. Ativan prn DVT Prophylaxis: SCD/Teds. CM for DC planning as needed. Problem Qualifiers (1) Spinal stenosis: Qualified Codes: M48.061 - Spinal stenosis, lumbar region without neurogenic claudication Yareli Reeves MD Jan 08, 2018 15:41
[2018-01-08] MEDS ORDERED: MIDAZOLAM HCL 2 MG/2 ML VIAL ONE (16:35)
--- NOTE | 2018-01-08 20:11 | RADRPT ---
EXAM DATE/TIME: 01/08/2018 12:52 [facility] COMPARISON: No previous studies available for comparison. INDICATIONS : L3-4 Laminectomy with cyst removal. MEDICAL HISTORY : Hypertension. Chronic obstructive pulmonary disease. Asthma. Smoker. SURGICAL HISTORY : Hysterectomy. Cholecystectomy. ENCOUNTER: Subsequent ACUITY: 2 days PAIN SCORE: Non-responsive. LOCATION: Lumbar spine. CONCLUSION: Lateral fluoroscopic image demonstrates temporary probe overlying the posterior eleme nts of L3 Juan Diego Rand MD on January 08, 2018 at 20:09 Board Certified Radiologist. This report was verified electronically.
[2018-01-08 20:42] VITALS: BP 107/62; PULSE 85; RESP 18; TEMP 98.1; O2SAT 96
[2018-01-08] MEDS: DOCUSATE SODIUM 100 MG CAP PO SCH (21:45)
[2018-01-08] MEDS: ceFAZolin 2 GM PREMIX 50 ML IV SCH (21:45)
[2018-01-08] MEDS: CHLORHEXIDINE GLUCONATE 4% SOLN 120 ML BTL TOP SCH (21:45)
[2018-01-08 23:01] VITALS: BP 130/61; PULSE 80; RESP 18; TEMP 98; O2SAT 98
[2018-01-09 03:25] VITALS: BP 121/63; PULSE 76; RESP 18; TEMP 98.3; O2SAT 97
[2018-01-09] MEDS: ceFAZolin 2 GM PREMIX 50 ML IV SCH ×2 (04:12→12:56)
[2018-01-09 08:00] VITALS: BP 126/62; PULSE 82; RESP 16; TEMP 98.1; O2SAT 96
[2018-01-09] MEDS: PANTOPRAZOLE SOD 40 MG DELAYED RELEASE TAB PO SCH (08:31)
[2018-01-09] MEDS: DOCUSATE SODIUM 50 MG/SENNA 8.6 MG TAB PO SCH ×2 (08:31→19:56)
[2018-01-09] MEDS: DULoxetine HCl DR 60 MG CAP PO SCH ×2 (08:31→19:56)
[2018-01-09] MEDS: GABAPENTIN 300 MG CAP PO SCH ×3 (08:31→18:41)
[2018-01-09] MEDS: DOCUSATE SODIUM 100 MG CAP PO SCH ×2 (08:31→19:56)
[2018-01-09] MEDS: SODIUM CHLORIDE 0.9% FLUSH 10 ML FLUSH IV FLUSH SCH ×2 (08:32→19:56)
[2018-01-09] MEDS: NS + KCL 20 MEQ INJ 1,000 ML IV SCH ×2 (10:14→19:56)
[2018-01-09 12:00] VITALS: BP 113/76; PULSE 89; RESP 16; TEMP 97.9; O2SAT 96
--- NOTE | 2018-01-09 15:08 | HHI.PR ---
Subjective Remarks Patient is in bed. Says she has pain in her feet and thinks she has fractures so she had multiple falls. He is however able to ambulate some with physical therapy. . Will do x-rays Objective Vitals Vital Signs Date Time Temp Pulse Resp B/P (MAP) Pulse Ox O2 Delivery O2 Flow Rate FiO2 01/09/18 12:00 97.9 89 16 113/76 (88) 96 01/09/18 08:00 98.1 82 16 126/62 (83) 96 01/09/18 03:25 98.3 76 18 121/63 (82) 97 01/08/18 23:01 98.0 80 18 130/61 (84) 98 01/08/18 20:42 98.1 85 18 107/62 (77) 96 01/08/18 18:00 98.0 62 12 152/85 (107) 100 Nasal Cannula 2 01/08/18 17:00 62 13 152/85 (107) 97 01/08/18 16:30 72 29 100 01/08/18 16:15 69 20 161/81 (107) 100 01/08/18 16:00 69 24 162/79 (106) 99 01/08/18 15:45 71 25 150/85 (106) 100 01/08/18 15:30 74 20 156/77 (103) 100 01/08/18 15:15 72 20 169/99 (122) 100 I/O 01/08/18 01/08/18 01/08/18 01/09/18 01/09/18 01/09/18 07:00 15:00 23:00 07:00 15:00 23:00 Intake Total 600 ml 1500 ml 150 ml 1302 ml Output Total 2500 ml 200 ml 700 ml 2575 ml Balance -1900 ml 1300 ml -550 ml -1273 ml Intake Oral 600 ml 100 ml 480 ml IV Total 50 ml 822 ml Other 1500 ml Output Urine Total 2500 ml 200 ml 700 ml 2575 ml # Bowel Movements 0 Result Diagram: 01/07/18 0400 01/07/18 0400 Imaging Last Impressions Foot X-Ray 01/09/18 0000 Signed Impressions: Service Date/Time: Tuesday, January 09, 2018 15:49 - CONCLUSION: Negative for acute process Rick Silva MD FACR Lumbar Spine X-Ray 01/08/18 0000 Signed Impressions: Service Date/Time: Monday, January 08, 2018 12:52 - CONCLUSION: Lateral fluoroscopic image demonstrates temporary probe overlying the posterior elements of L3 Juan Diego Rnad MD Thoracic Spine MRI 01/06/18 0000 Signed Impressions: Service Date/Time: Saturday, January 06, 2018 17:08 - CONCLUSION: Normal examination. Derian Mo MD Lumbar Spine MRI 01/06/18 0000 Signed Impressions: Service Date/Time: Saturday, January 06, 2018 17:08 - CONCLUSION: 1. Moderate to severe stenosis at the L3-L4 level caused by combination of mild disc bulge and a medially directed left synovial cyst of the left facet joint. The synovial cyst could potentially be decompressed with interventional radiology directed aspiration. 2. Prominent enhancement of the L3-L4 facet joints likely from inflammatory arthritic change. Infection cannot be excluded in the correct clinical situation. 3. Moderate facet hypertrophy at the L4-L5 level. Derian Parker MD Cervical Spine MRI 01/06/18 0000 Signed Impressions: Service Date/Time: Saturday, January 06, 2018 17:08 - CONCLUSION: Mild multilevel disc abnormalities as described. None of these produce any significant canal compromise, however there is mild asymmetrically right-sided foraminal stenosis at C3-4 and bilateral foraminal stenosis at C4-5. Derian Mo MD Objective Remarks GENERAL: Middle-aged white female in no acute distress, hyperactive, tangential speech HEENT: PERRLA, EOMI. No scleral icterus or conjunctival pallor. No lid lag or facial droop. CARDIOVASCULAR: Regular rate and rhythm. No obvious murmurs to auscultation. No chest tenderness to palpation. RESPIRATORY: No obvious rhonchi or wheezing. Clear to auscultation. Breath sounds equal bilaterally. GASTROINTESTINAL: Abdomen soft, non-tender, nondistended. BS normal. MUSCULOSKELETAL: Extremities without clubbing, cyanosis, or edema. No obvious deformities. No lumbar tenderness to palpation. NEUROLOGICAL: Awake, alert and oriented x4. No focal neurologic deficits. Moving both upper and lower extremities spontaneously. A/P Problem List: (1) Spinal stenosis ICD Code: M48.00 - Spinal stenosis, site unspecified Status: Acute (2) Weakness ICD Code: R53.1 - Weakness (3) IVDU (intravenous drug user) ICD Code: F19.90 - Other psychoactive substance use, unspecified, uncomplicated Assessment and Plan Spinal Stenosis: reports incontinence feces/urine w/ weakness, MRI L-Spine w/ mod-severe spinal stenosis at L3-L4 caused by disc bulge and left synovial cyst , likely amenable to decompression by IR. In light of weakness/incontinence will consult NxSx for further evaluation, MRI w/ questionable area of infection , images reviewed by me, concerning in light of +IVDU, CRP/ESR negative. Discussed with Dr Jackson neurosurgery, patient is a candidate for surgery however if patient is homeless can;t do surgery as she is a risk of infection after surgery. Discussed with Cm, patient is not homeless Weakness and multiple falls 2/2 spinal stenosis. PT for eval/tx. X ray feet no fractures. IVDU: Denies recent use, states hasn't used "in years", however UDS from positive for Cocaine/Amphetamines/Benzo. Ativan prn DVT Prophylaxis: SCD/Teds. CM for DC planning as needed. Problem Qualifiers (1) Spinal stenosis: Qualified Codes: M48.061 - Spinal stenosis, lumbar region without neurogenic claudication Yareli Reeves MD Jan 09, 2018 15:08
[2018-01-09 16:00] VITALS: BP 105/59; PULSE 78; RESP 16; TEMP 98.1; O2SAT 98
--- NOTE | 2018-01-09 16:03 | RADRPT ---
EXAM DATE/TIME: 01/09/2018 15:46 [facility] COMPARISON: No previous studies available for comparison. INDICATIONS : Patient complains of bilateral foot pain. MEDICAL HISTORY : None. SURGICAL HISTORY : None. ENCOUNTER: Initial ACUITY: 1 week PAIN SCORE: 5/10 LOCATION: Left Foot FINDINGS: Three view examination of the left foot demonstrates no soft tissue swelling, dislocation, or fractur e. The tarsal bones appear intact. The interphalangeal and metatarsophalangeal joints are intact. The calcaneus is intact. Bony mineralization is normal. CONCLUSION: Negative for acute process Rick Silva MD FACR on January 09, 2018 at 16:01 Board Certified Radiologist. This report was verified electronically.
--- NOTE | 2018-01-09 16:04 | RADRPT ---
EXAM DATE/TIME: 01/09/2018 15:49 [facility] COMPARISON: FOOT RIGHT COMPLETE ([id number]), June 21, 2017, 16:47. INDICATIONS : Patient complains of right foot pain. No recent injuries. MEDICAL HISTORY : None. SURGICAL HISTORY : None. ENCOUNTER: Initial ACUITY: 1 week PAIN SCORE: 5/10 LOCATION: Right Foot FINDINGS: Three view examination of the right foot demonstrates no soft tissue swelling, dislocation, or fractu re. The tarsal bones appear intact. The interphalangeal and metatarsophalangeal joints are intact. The calcaneus is intact. Bony mineralization is normal. CONCLUSION: Negative for acute process Rick Silva MD FACR on January 09, 2018 at 16:01 Board Certified Radiologist. This report was verified electronically.
--- NOTE | 2018-01-09 16:16 | HHI.NSPN ---
(Nicole Montenegro) Note Status Status: Progress Note (Nicole Montenegro) Interval History Interval History Ms Amaya is a 61 year-old female who presented with intractable back pain and jono evidence of left L4 lower extremity radiculopathy. She was found to have severe lumbar spinal stenosis with a large synovial cyst arising from the L3-L4 left facets causing severe neural compression. She failed maximum nonsurgical.. A surgical decompression was indicated as a last resort. She underwent a L3-4 laminectomy with resection of epidural mass, suspected synovial cyst on Jan 08, 201801/09: doing well reports resolution of her prior radicular pain, very happy and pleased with her surgical outcome. (Nicole Montenegro) Labs, Micro, & Vital Signs Results Date Time Temp Pulse Resp B/P (MAP) Pulse Ox O2 Delivery O2 Flow Rate FiO2 01/09/18 12:00 97.9 89 16 113/76 (88) 96 01/09/18 08:00 98.1 82 16 126/62 (83) 96 01/09/18 03:25 98.3 76 18 121/63 (82) 97 01/08/18 23:01 98.0 80 18 130/61 (84) 98 01/08/18 20:42 98.1 85 18 107/62 (77) 96 01/08/18 18:00 98.0 62 12 152/85 (107) 100 Nasal Cannula 2 01/08/18 17:00 62 13 152/85 (107) 97 01/08/18 16:30 72 29 100 01/08/18 16:15 69 20 161/81 (107) 100 Constitutional Vital Signs Date Time Temp Pulse Resp B/P (MAP) Pulse Ox O2 Delivery O2 Flow Rate FiO2 01/09/18 12:00 97.9 89 16 113/76 (88) 96 01/09/18 08:00 98.1 82 16 126/62 (83) 96 01/09/18 03:25 98.3 76 18 121/63 (82) 97 01/08/18 23:01 98.0 80 18 130/61 (84) 98 01/08/18 20:42 98.1 85 18 107/62 (77) 96 01/08/18 18:00 98.0 62 12 152/85 (107) 100 Nasal Cannula 2 01/08/18 17:00 62 13 152/85 (107) 97 01/08/18 16:30 72 29 100 01/08/18 16:15 69 20 161/81 (107) 100 (Nicole Montenegro) Physical Exam Ms. Perea is alert, awake and oriented to time, place and person. Talks with a dysarthric speech. Cranial nerve examination: pupils equal, round, and reactive to light. Facial motor are normal and symmetrical. Neck is soft and supple. Motor: moving all major muscle groups of LE 5/5 (Nicole Montenegro) Medications Current Medications Current Medications Medications (Trade) Dose Ordered Sig/Corrine Route PRN Reason Start Time Stop Time Status Last Admin Dose Admin Sodium Chloride (NS Flush) 2 ml UNSCH PRN IV FLUSH FLUSH AFTER USING IV ACCESS 01/06/18 20:45 Sodium Chloride (NS Flush) 2 ml BID IV FLUSH 01/06/18 21:00 01/08/18 21:46 Ondansetron HCl (Zofran Inj) 4 mg Q6H PRN IVP NAUSEA OR VOMITING 01/06/18 20:45 Oxycodone HCl (Roxicodone) 10 mg Q4H PRN PO PAIN SCALE 6 TO 10 01/06/18 20:45 01/09/18 12:56 Oxycodone HCl (Roxicodone) 5 mg Q4H PRN PO PAIN SCALE 3 TO 5 01/06/18 20:45 01/07/18 17:50 Senna/Docusate Sodium (Magi-Colace) 1 tab BID PO 01/06/18 21:00 01/09/18 08:31 Magnesium Hydroxide (Milk Of Magnesia Liq) 30 ml Q12H PRN PO Mild constipation 01/06/18 20:45 Sennosides (Senokot) 17.2 mg Q12H PRN PO Moderate constipation 01/06/18 20:45 Bisacodyl (Dulcolax Supp) 10 mg DAILY PRN RECTAL SEVERE CONSITIPATION 01/06/18 20:45 Lactulose (Lactulose Liq) 30 ml DAILY PRN PO SEVERE CONSITIPATION 01/06/18 20:45 Alprazolam (Xanax) 1 mg Q6H PRN PO ANXIETY 01/06/18 23:15 Duloxetine HCl (Cymbalta Dr) 60 mg BID PO 01/07/18 09:00 01/09/18 08:31 Gabapentin (Neurontin) 300 mg TID PO 01/07/18 09:00 01/09/18 12:56 Chlorhexidine Gluconate (Hibiclens 4% Top Soln) 1 applic HS TOP 01/07/18 21:00 01/09/18 21:01 01/07/18 21:00 Lactated Ringer's 1,000 ml @ 30 mls/hr Q24H PRN IV SEE LABEL COMMENTS 01/08/18 03:30 01/11/18 03:29 Sodium Chloride 500 ml @ 30 mls/hr [id number] PRN IV SEE LABEL COMMENTS 01/08/18 03:30 01/11/18 03:29 Metoprolol Tartrate (Lopressor) 25 mg [employer]OR [employer]GER PRN PO SEE LABEL COMMENTS 01/08/18 03:30 01/11/18 03:29 Povidone Iodine (Betadine 5% Antisepsis Kit) 1 applic [employer]OR [employer]GER PRN EACH NARE SEE LABEL COMMENTS 01/08/18 03:30 01/11/18 03:29 Chlorhexidine Gluconate (Chlorhexidine 2% Cloth) 3 pack [employer]OR [employer]GER PRN TOPICAL SEE LABEL COMMENTS 01/08/18 03:30 01/11/18 03:29 Potassium Chloride/Sodium Chloride 1,000 ml @ 100 mls/hr Q10H IV 01/08/18 14:14 01/08/18 23:04 Docusate Sodium (Colace) 100 mg BID PO 01/08/18 21:00 01/09/18 08:31 Pantoprazole Sodium (Protonix) 40 mg DAILY PO 01/09/18 09:00 01/09/18 08:31 Morphine Sulfate (Morphine Inj) 2 mg Q2H PRN IV PUSH PAIN SCALE 1 TO 6 01/08/18 14:15 Morphine Sulfate (Morphine Inj) 4 mg Q2H PRN IV PUSH PAIN SCALE 7 TO 10 01/08/18 14:15 (Nicole Montenegro) Medical Decision Making MDM Remarks 57 y/o female s/p L3-4 laminectomy with resection of epidural mass, suspected synovial cyst on 01/08/18 (Nicole Montenegro) Plan Plan Remarks doing well keep Optifoam dressing on, to be removed 7 days postop she is cleared to shower only, no soaking activity restrictions, avoid BLT, heavy lifting, wear brace when OOB clear to dc recommend to SNF from [facility] standpoint f/u in office in 1-2 weeks, f/u final pathology will sign off, call prn (Nicole Montenegro) Attending Statement The exam, history, and the medical decision-making described in the above note were completed with the assistance of the mid-level provider. I reviewed and agree with the findings presented. I attest that I had a [id number] encounter with the patient on the same day, and personally performed and documented my assessment and findings in the medical record. (Chino Jackson MD) Nicole Montenegro Jan 09, 2018 16:16 Chino Jackson MD Jan 11, 2018 21:20
[2018-01-09] MEDS: CHLORHEXIDINE GLUCONATE 4% SOLN 120 ML BTL TOP SCH (19:57)
[2018-01-09 20:00] VITALS: BP 109/66; PULSE 79; RESP 18; TEMP 97.4; O2SAT 98
[2018-01-10] VITALS: BP 108/60; PULSE 75; RESP 20; TEMP 98.1; O2SAT 98
[2018-01-10 04:00] VITALS: BP 115/69; PULSE 70; RESP 18; TEMP 98.2; O2SAT 96
[2018-01-10] MEDS: NS + KCL 20 MEQ INJ 1,000 ML IV SCH (05:23)
[2018-01-10 08:00] VITALS: BP 129/69; PULSE 79; RESP 18; TEMP 98.1; O2SAT 97
[2018-01-10] MEDS: DOCUSATE SODIUM 50 MG/SENNA 8.6 MG TAB PO SCH (08:24)
[2018-01-10] MEDS: DOCUSATE SODIUM 100 MG CAP PO SCH (08:24)
[2018-01-10] MEDS: GABAPENTIN 300 MG CAP PO SCH ×2 (08:24→12:40)
[2018-01-10] MEDS: PANTOPRAZOLE SOD 40 MG DELAYED RELEASE TAB PO SCH (08:24)
[2018-01-10] MEDS: DULoxetine HCl DR 60 MG CAP PO SCH (08:24)
[2018-01-10] MEDS: SODIUM CHLORIDE 0.9% FLUSH 10 ML FLUSH IV FLUSH SCH (08:28)
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
[2018-01-10] MEDS ORDERED: NORC5TAB PO (09:41)
--- NOTE | 2018-01-10 09:41 | HHI.FF ---
Face to Face Verification Diagnosis: (1) Back pain of lumbar region with sciatica (2) Weakness (3) Paranoid type schizophrenia, chronic state (4) Spinal stenosis (5) Adjustment disorder with depressed mood Physical Therapy Order: Evaluate and Treat Home Health Nursing Order: Medical education Signs/symptoms of disease process Medication education-adverse effect Nursing assessment with vital signs I have seen patient Carola Amaya on 01/10/18. My clinical findings support the need for the requested home health care services because: Ltd mobility - disease progression Patient has SOB I certify that my clinical findings support that this patient is homebound because: Post-op weakness Yareli Reeves MD Jan 10, 2018 09:41
[2018-01-10] MEDS ORDERED: GETGO ROLLING W1 MI1 (09:43)
--- NOTE | 2018-01-10 11:44 | HHI.PR ---
Subjective Remarks PATIEN TIN BED. sAYS SHE FEELS IMROVED. no N/V/D/C. ABLE TO AMBULATE NO FEVER RO CHILL Objective Vitals Vital Signs Date Time Temp Pulse Resp B/P (MAP) Pulse Ox O2 Delivery O2 Flow Rate FiO2 01/10/18 08:00 98.1 79 18 129/69 (89) 97 01/10/18 04:00 98.2 70 18 115/69 (84) 96 01/10/18 00:00 98.1 75 20 108/60 (76) 98 01/09/18 20:00 97.4 79 18 109/66 (80) 98 01/09/18 16:00 98.1 78 16 105/59 (74) 98 01/09/18 16:00 98.1 78 16 105/59 (74) 98 01/09/18 12:00 97.9 89 16 113/76 (88) 96 I/O 01/09/18 01/09/18 01/09/18 01/10/18 01/10/18 01/10/18 07:00 15:00 23:00 07:00 15:00 23:00 Intake Total 1302 ml 950 ml 995 ml Output Total 2575 ml 3400 ml 3175 ml Balance -1273 ml -2450 ml -2180 ml Intake Oral 480 ml 950 ml IV Total 822 ml 995 ml Output Urine Total 2575 ml 3400 ml 3175 ml # Bowel Movements 0 0 Result Diagram: 01/07/18 0400 01/07/18 0400 Objective Remarks GENERAL: Middle-aged white female in no acute distress, hyperactive, tangential speech HEENT: PERRLA, EOMI. No scleral icterus or conjunctival pallor. No lid lag or facial droop. CARDIOVASCULAR: Regular rate and rhythm. No obvious murmurs to auscultation. No chest tenderness to palpation. RESPIRATORY: No obvious rhonchi or wheezing. Clear to auscultation. Breath sounds equal bilaterally. GASTROINTESTINAL: Abdomen soft, non-tender, nondistended. BS normal. MUSCULOSKELETAL: Extremities without clubbing, cyanosis, or edema. No obvious deformities. No lumbar tenderness to palpation. NEUROLOGICAL: Awake, alert and oriented x4. No focal neurologic deficits. Moving both upper and lower extremities spontaneously. Procedures L3-4 epidural synovial cyst s/p L3-4 left hemilaminectomy, resection of synovial cyst by Dr Jackson A/P Problem List: (1) Spinal stenosis ICD Code: M48.00 - Spinal stenosis, site unspecified Status: Acute (2) Weakness ICD Code: R53.1 - Weakness (3) IVDU (intravenous drug user) ICD Code: F19.90 - Other psychoactive substance use, unspecified, uncomplicated Assessment and Plan Spinal Stenosis: reports incontinence feces/urine w/ weakness, MRI L-Spine w/ mod-severe spinal stenosis at L3-L4 caused by disc bulge and left synovial cyst , likely amenable to decompression by IR. In light of weakness/incontinence will consult NxSx for further evaluation, MRI w/ questionable area of infection , images reviewed by me, concerning in light of +IVDU, CRP/ESR negative. Discussed with Dr Jackson neurosurgery, patient is a candidate for surgery however if patient is homeless can;t do surgery as she is a risk of infection after surgery. 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 PT for eval/tx. X ray feet no fractures. IVDU: Denies recent use, states hasn't used "in years", however UDS from positive for Cocaine/Amphetamines/Benzo. Ativan prn DVT Prophylaxis: SCD/Teds. CM for DC planning as needed. Problem Qualifiers (1) Spinal stenosis: Qualified Codes: M48.061 - Spinal stenosis, lumbar region without neurogenic claudication Yareli Reeves MD Jan 10, 2018 11:44
[2018-01-10 12:00] VITALS: BP 128/78; PULSE 79; RESP 18; TEMP 97.8; O2SAT 100
== END 2018-01-10 15:14 | disposition home health service (06) | DRG 520 ==
LOC: NEPD 13:43 → INTOOBSV 20:24 → NEDA 20:24 → N04B 21:37 → N05B 01-08 15:01 → N06A 01-08 18:22 → OBSVTOIN 01-09 10:30
PROVIDERS: ADMIT Hospitalist; ATTEND Hospitalist
PROC: 01NB0ZZ Release Lumbar Nerve, Open Approach (ICD-10-PCS; 2018-01-08)
PROC: 00BY0ZZ Excision of Lumbar Spinal Cord, Open Approach (ICD-10-PCS; principal; 2018-01-08 11:51)
DX: M54.16 Radiculopathy, lumbar region (principal); F20.9 Schizophrenia, unspecified; I10 Essential (primary) hypertension; J44.9 Chronic obstructive pulmonary disease, unspecified; R15.9 Full incontinence of feces; M48.02 Spinal stenosis, cervical region; M71.38 Other bursal cyst, other site; M48.061 Spinal stenosis, lumbar region without neurogenic claudication; R29.6 Repeated falls; R32 Unspecified urinary incontinence; G40.909 Epilepsy, unspecified, not intractable, without status epilepticus; F31.9 Bipolar disorder, unspecified; F41.9 Anxiety disorder, unspecified; R82.71 Bacteriuria; F19.10 Other psychoactive substance abuse, uncomplicated; M54.5 Low back pain; G89.29 Other chronic pain; G47.30 Sleep apnea, unspecified; K21.9 Gastro-esophageal reflux disease without esophagitis; M19.90 Unspecified osteoarthritis, unspecified site; Z72.0 Tobacco use
CPT/HCPCS: 72020; 72120; 72156; 72157; 72158; 73630; 76000; 80048; 80053; 80307; 81001; 83735; 85025; 85652; 86140; 88304; 88311; 93005; 94150; A9579; G8987-GP; G8988-GP; J0131; J0690; J1030; J1580; J2250; J2270; J2370; J2405; J2710; J3010; J3480; J7030; J7120; L0627

== ENCOUNTER 2018-02-22 16:04 | Emergency (ER) | payer OTHER, MEDICAID ==
[~2018-02-22] VITALS: Ht 165.1 cm; Wt 63.0 kg
[~2018-02-22 16:04] MED LIST changes: -CYCL10TA PO; +GETGO ROLLING W1 MI1; +LAMI25TA PO; -MSIR15 PO; +NORC5TAB PO; -ORPH100T2 PO
[2018-02-22 16:38] VITALS: BP 133/73; PULSE 89; RESP 16; O2SAT 97
[2018-02-22 17:44] VITALS: BP 98/52; PULSE 76; RESP 16; TEMP 98.6; O2SAT 100
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
[2018-02-22 21:40] LABS: AUTOMATED NEUTROPHIL # 1.5 TH/MM3 (1.8-7.7); BASOPHIL % 0.5 % (0.0-2.0); EOSINOPHIL # 0.2 TH/MM3 (0-0.4); EOSINOPHIL % 4.7 % (0.0-4.0); HEMATOCRIT 37.5 % (35.0-46.0); HEMOGLOBIN 12.4 GM/DL (11.6-15.3); LYMPH % 42.8 % (9.0-44.0); LYMPHOCYTE # 1.6 TH/MM3 (1.0-4.8); MEAN CELL VOLUME 90.8 FL (80.0-100.0); MEAN CORPUSCULAR HGB CONC 33.1 % (32.0-36.0); MEAN PLATELET VOLUME 8.4 FL (7.0-11.0); MONO % 12.7 % (0.0-8.0); MONOCYTE # 0.5 TH/MM3 (0-0.9); NEUT % 39.3 % (16.0-70.0); PLATELET COUNT 150 TH/MM3 (150-450); RED BLOOD COUNT 4.13 MIL/MM3 (4.00-5.30); RED CELL DISTRIBUTION WIDTH 14.4 % (11.6-17.2); WHITE BLOOD COUNT 3.8 TH/MM3 (4.0-11.0)
[2018-02-22 21:57] LABS: AST (GOT) 63 U/L (15-37); BICARBONATE 28.7 MEQ/L (21.0-32.0); BLOOD UREA NITROGEN 10 MG/DL (7-18); CALCIUM 9.1 MG/DL (8.5-10.1); CHLORIDE 106 MEQ/L (98-107); CREATININE 0.91 MG/DL (0.50-1.00); GLOMERULAR FILTRATION RATE 64 ML/MIN (>89); GLUCOSE,RANDOM 95 MG/DL (74-106); SODIUM (NA) 144 MEQ/L (136-145)
[2018-02-22 21:58] LABS: ALT (GPT) 69 U/L (10-53)
[2018-02-22 22:08] LABS: ALKALINE PHOSPHATASE 105 U/L (45-117); TOTAL BILIRUBIN ADULT 0.3 MG/DL (0.2-1.0); TOTAL PROTEIN 7.1 GM/DL (6.4-8.2)
[2018-02-22 22:11] LABS: ACETAMINOPHEN LESS THAN 2.0 MCG/ML (10.0-30.0)
[2018-02-22 22:18] VITALS: BP 107/70; PULSE 73; RESP 18; TEMP 98; O2SAT 96
[2018-02-23 03:10] VITALS: BP 129/68; PULSE 67; RESP 18; TEMP 97.2; O2SAT 98
[2018-02-23 07:00] VITALS: BP 112/58; PULSE 63; RESP 18; TEMP 98.6; O2SAT 100
--- NOTE | 2018-02-23 08:36 | PD ---
Physical Exam Narrative This patient was seen by previous provider and medically clear for psych evaluation. I was asked by psych to write a disposition note so that pt can be transferred to [facility] for further treatment. Please see previous provider's note for further details. Data Data Last Documented VS Vital Signs Date Time Temp Pulse Resp B/P (MAP) Pulse Ox O2 Delivery O2 Flow Rate FiO2 02/23/18 07:00 98.6 63 18 112/58 (76) 100 Room Air Orders Orders Complete Blood Count With Diff (02/22/18 16:57) Comprehensive Metabolic Panel (02/22/18 16:57) Thyroid Stimulating Hormone (02/22/18 16:57) Psych Screen (02/22/18 16:57) Drug Screen, Random Urine (02/22/18 16:57) Alcohol (Ethanol) (02/22/18 16:57) Salicylates (Aspirin) (02/22/18 16:57) Tylenol (Acetaminophen) (02/22/18 16:57) Ct Brain W/O Iv Contrast(Rout) (02/22/18 ) Diet Regular Basic (02/22/18 Dinner) Diet Regular Basic (02/23/18 Breakfast) Labs Laboratory Tests Test 02/22/18 19:38 02/22/18 21:00 Urine Opiates Screen NEG Urine Barbiturates Screen NEG Urine Amphetamines Screen POS Urine Benzodiazepines Screen POS Urine Cocaine Screen NEG Urine Cannabinoids Screen NEG White Blood Count 3.8 TH/MM3 Red Blood Count 4.13 MIL/MM3 Hemoglobin 12.4 GM/DL Hematocrit 37.5 % Mean Corpuscular Volume 90.8 FL Mean Corpuscular Hemoglobin 30.0 PG Mean Corpuscular Hemoglobin Concent 33.1 % Red Cell Distribution Width 14.4 % Platelet Count 150 TH/MM3 Mean Platelet Volume 8.4 FL Neutrophils (%) (Auto) 39.3 % Lymphocytes (%) (Auto) 42.8 % Monocytes (%) (Auto) 12.7 % Eosinophils (%) (Auto) 4.7 % Basophils (%) (Auto) 0.5 % Neutrophils # (Auto) 1.5 TH/MM3 Lymphocytes # (Auto) 1.6 TH/MM3 Monocytes # (Auto) 0.5 TH/MM3 Eosinophils # (Auto) 0.2 TH/MM3 Basophils # (Auto) 0.0 TH/MM3 CBC Comment DIFF FINAL Differential Comment Blood Urea Nitrogen 10 MG/DL Creatinine 0.91 MG/DL Random Glucose 95 MG/DL Total Protein 7.1 GM/DL Albumin 3.0 GM/DL Calcium Level 9.1 MG/DL Alkaline Phosphatase 105 U/L Aspartate Amino Transf (AST/SGOT) 63 U/L Alanine Aminotransferase (ALT/SGPT) 69 U/L Total Bilirubin 0.3 MG/DL Sodium Level 144 MEQ/L Potassium Level 3.4 MEQ/L Chloride Level 106 MEQ/L Carbon Dioxide Level 28.7 MEQ/L Anion Gap 9 MEQ/L Estimat Glomerular Filtration Rate 64 ML/MIN Thyroid Stimulating Hormone 3rd Gen 1.040 uIU/ML Salicylates Level LESS THAN 1.7 MG/DL Acetaminophen Level LESS THAN 2.0 MCG/ML Ethyl Alcohol Level LESS THAN 3 MG/DL MDM Supervised Visit with CECILY: Yes Diagnosis Primary Impression: Bipolar disorder Qualified Codes: F31.62 - Bipolar disorder, current episode mixed, moderate Additional Impression: Head injury, acute Qualified Codes: S09.90XA - Unspecified injury of head, initial encounter Patient Instructions: General Instructions Departure Forms: Tests/Procedures Additional Instruction: Follow up as instructed per the Susanna. Med/Other Pt SpecificInfo: No Change to Meds Disposition: 70 TRANSFER TO OTHER FACILITY Condition: Stable Dianna Ferraro DO Feb 23, 2018 08:36
== END 2018-02-23 09:13 | disposition short-term general hospital (02) ==
LOC: NEDAMB 16:04 → NEPJ 02-23 09:13
DX: S09.90XA Unspecified injury of head, initial encounter (principal); F31.9 Bipolar disorder, unspecified; M19.90 Unspecified osteoarthritis, unspecified site; F41.9 Anxiety disorder, unspecified; J44.9 Chronic obstructive pulmonary disease, unspecified; I10 Essential (primary) hypertension; F20.9 Schizophrenia, unspecified; W22.8XXA Striking against or struck by other objects, initial encounter; Z79.899 Other long term (current) drug therapy
CPT/HCPCS: 70450; 80053; 80307; 84443; 85025; 99285

== ENCOUNTER 2018-03-19 13:34 | Emergency (ER) | payer OTHER, MEDICAID ==
[~2018-03-19] VITALS: Ht 165.1 cm; Wt 68.0 kg
[2018-03-19 13:37] VITALS: BP 163/84; PULSE 68; RESP 17; TEMP 97.8; O2SAT 99
[2018-03-19 17:00] LABS: AUTOMATED NEUTROPHIL # 2.8 TH/MM3 (1.8-7.7); BASOPHIL % 0.7 % (0.0-2.0); EOSINOPHIL # 0.2 TH/MM3 (0-0.4); EOSINOPHIL % 3.5 % (0.0-4.0); HEMATOCRIT 39.6 % (35.0-46.0); HEMOGLOBIN 13.3 GM/DL (11.6-15.3); LYMPH % 40.9 % (9.0-44.0); LYMPHOCYTE # 2.4 TH/MM3 (1.0-4.8); MEAN CELL VOLUME 92.2 FL (80.0-100.0); MEAN CORPUSCULAR HEMOGLOBIN 30.9 PG (27.0-34.0); MEAN CORPUSCULAR HGB CONC 33.5 % (32.0-36.0); MEAN PLATELET VOLUME 8.7 FL (7.0-11.0); MONO % 6.8 % (0.0-8.0); MONOCYTE # 0.4 TH/MM3 (0-0.9); NEUT % 48.1 % (16.0-70.0); PLATELET COUNT 260 TH/MM3 (150-450); RED CELL DISTRIBUTION WIDTH 14.1 % (11.6-17.2); WHITE BLOOD COUNT 5.8 TH/MM3 (4.0-11.0)
[2018-03-19 17:23] LABS: ALBUMIN 3.7 GM/DL (3.4-5.0); ALT (GPT) 67 U/L (10-53); AST (GOT) 58 U/L (15-37); BICARBONATE 29.5 MEQ/L (21.0-32.0); BLOOD UREA NITROGEN 7 MG/DL (7-18); CALCIUM 9.3 MG/DL (8.5-10.1); CHLORIDE 107 MEQ/L (98-107); CREATININE 0.93 MG/DL (0.50-1.00); GLOMERULAR FILTRATION RATE 62 ML/MIN (>89); GLUCOSE,RANDOM 80 MG/DL (74-106); SODIUM (NA) 143 MEQ/L (136-145)
[2018-03-19 17:25] LABS: ALKALINE PHOSPHATASE 119 U/L (45-117); TOTAL BILIRUBIN ADULT 0.3 MG/DL (0.2-1.0)
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
--- NOTE | 2018-03-19 18:31 | RADRPT ---
EXAM DATE: 03/19/2018 6:00 PM EDT AGE/SEX: 57 years / Female INDICATIONS: Bruising and swelling to left ankle. CLINICAL DATA: This is the patient's initial encounter. Patient reports that signs and symptoms have been present for 1 day and indicates a pain score of 5/10. MEDICAL/SURGICAL HISTORY: None. None. COMPARISON: [facility] – [place], FOOT LEFT COMPLETE ([id number]), 01/09/2018. . FINDINGS: Stable benign-appearing ossific densities adjacent to the lateral malleolus. No evidence of fracture, dislocation or bony destruction. Stable mild arthritic changes at the fifth toe metatarsophalangeal joint. CONCLUSION: No acute bony findings Electronically signed by: Derian Mo MD 03/19/2018 6:30 PM EDT
--- NOTE | 2018-03-19 18:34 | RADRPT ---
EXAM DATE: 03/19/2018 6:02 PM EDT AGE/SEX: 57 years / Female INDICATIONS: Pain an swelling to left ankle on lateral side. CLINICAL DATA: This is the patient's initial encounter. Patient reports that signs and symptoms have been present for 1 day and indicates a pain score of 5/10. MEDICAL/SURGICAL HISTORY: None. None. COMPARISON: No prior exams available for comparison. FINDINGS: The bony mineralization is within normal limits. The examination demonstrates a small transverse luce ncy across the distal aspect of the fibula. This may represent a nondisplaced fracture of the fibula. The examination demonstrates osteoarthritic changes along the lateral malleolus. There is soft tissu e swelling. No retained foreign body is seen. CONCLUSION: Soft tissue swelling on the lateral side of the ankle. There is a small transverse lucency across the distal fibula concerning for nondisplaced fracture. There are degenerative changes along the inferio r aspect of the lateral malleolus. Electronically signed by: Ramy Sliva MD 03/19/2018 6:32 PM EDT
== END 2018-03-19 19:43 | disposition home or self-care (01) ==
LOC: NEPK 13:34
DX: S82.892A Other fracture of left lower leg, initial encounter for closed fracture (principal); S40.022A Contusion of left upper arm, initial encounter; S40.021A Contusion of right upper arm, initial encounter; S80.12XA Contusion of left lower leg, initial encounter; S80.11XA Contusion of right lower leg, initial encounter; R79.89 Other specified abnormal findings of blood chemistry; W01.0XXA Fall on same level from slipping, tripping and stumbling without subsequent striking against object, initial encounter; I10 Essential (primary) hypertension; J44.9 Chronic obstructive pulmonary disease, unspecified; F31.9 Bipolar disorder, unspecified; F20.9 Schizophrenia, unspecified; Z72.0 Tobacco use; Z88.6 Allergy status to analgesic agent; Z79.899 Other long term (current) drug therapy
CPT/HCPCS: 73610; 73630; 80053; 85025; 85610; 85730; 99284; E0113; L2114